=== PATIENT | male | born 1975 | race Two or more races ===

== ENCOUNTER 2025-03-18 23:20 | Emergency (ER) | payer OTHER ==
[~2025-03-18] VITALS: Ht 188 cm; Wt 134.5 kg
--- NOTE | 2025-03-18 23:46 | ED.PDOC ---
General HPI Comments 49 year old male presents to the ED for the c/c of Right Flank pain w/ associated radiating to the Right Abdomen, and N/. Pt states that his pain started approx 5x days ago, and has since found no alleviating factors at this time. Pt notes that he went to a [facility], and was told he had "back spasms", and was prescribed muscle relaxers, but notes of no alleviation from the prescribed medication. Pt Denies and V/D, Dysuria, Hematuria, or any other associated Symptoms or Modifiers at this time. Chief Complaint: Abdominal Pain Time Seen by MD: 23:41 Reviewed notes: Nurses Notes, Medications, Allergies Allergies: Coded Allergies: Aspirin (Verified Allergy, Unknown, 03/18/25) Home Meds Active Scripts Ibuprofen Micronized (Ibuprofen) 600 Mg Tab, 600 MG PO Q8HP PRN, #20 TAB Prov:ИРИНА SILVA MD 03/19/25 Hydrocodone-Acetaminophen (Hydrocodone Bitartrate/AC 10-325 mg) 1 Tab Tab, 1 TAB PO Q6HP PRN, #20 TAB Prov:ИРИНА SILVA MD 03/19/25 Tamsulosin Hcl (Flomax) 0.4 Mg Cap, 1 CAP PO DAILY for 30 Days, #30 CAP 11 Refills Prov:ИРИНА SILVA MD 03/19/25 Information Source: Patient Mode of Arrival: Ambulatory Severity: Moderate Inability to void: None Timing: Days Duration: Intermittent, Days Has not urinated for: Minutes Prehospital treatment: None Onset: Spontaneous Symptoms: Dysuria History of: None Location: Abdomen, (R) Flank Penile discharge: None Modifying factors: None associated signs and symptoms: Abdominal Pain, Nausea Past Medical History PAST MEDICAL HISTORY: Denies Surgical History: Denies all surgeries Family History Family History: Unknown Social History Smoker: Non-Smoker Alcohol: Denies ETOH Use Drugs: Denies Drug Use Lives In: Home Constitutional: denies: chills, diaphoresis, fatigue, fever, malaise, sweats, weakness, others EENTM: denies: blurred vision, double vision, ear bleeding, ear discharge, ear drainage, ear pain, ear ringing, eye pain, eye redness, hearing loss, mouth pain, mouth swelling, nasal discharge, nose bleeding, nose congestion, nose pain, photophobia, tearing, throat pain, throat swelling, voice changes, others Respiratory: denies: cough, hemoptysis, orthopnea, SOB at rest, shortness of breath, SOB with excertion, stridor, wheezing, others Cardiovascular: denies: chest pain, dizzy spells, diaphoresis, Dyspnea on exertion, edema, irregular heart beat, left arm pain, lightheadedness, palpitations, PND, syncope, others Gastrointestinal: reports: abdominal pain; denies: abdomen distended, blood str eaked bowels, constipated, diarrhea, dysphagia, difficulty swallowing, hematemesis, melena, nausea, poor appetite, poor fluid intake, rectal bleeding, rectal pain, vomiting, others Genitourinary: reports: flank pain; denies: burning, dysuria, frequency, hematuria, incontinence, penile discharge, penile sore, pain, testicle pain, testicle swelling, urgency, others Neurological: denies: dizziness, fainting, headache, left sided numbness, left sided weakness, numbness, paresthesia, pre-existing deficit, right sided numbness, right sided weakness, seizure, speech problems, tingling, tremors, weakness, others Musculoskeletal: denies: back pain, gout, joint pain, joint swelling, muscle pain, muscle stiffness, neck pain, others Integumetry: denies: bruises, change in color, change in hair/nails, dryness, laceration, lesions, lumps, rash, wounds, others Allergic/Immunocompromised: denies: Difficulty Healing, Frequent Infections, Hives, Itching, others Hematologic/Lymphatic: denies: anemia, blood clots, easy bleeding, easy bruising, swollen glands, others Endocrine: denies: excessive hunger, excessive sweating, excessive thirst, excessive urination, flushing, intolerance to cold, intolerance to heat, unexplained weight gain, unexplained weight loss, others Psychiatric: denies: anxiety, bipolar disorder, depression, hopeless, panic disorder, schizophrenia, sleepless, suicidal, others All Other Systems: Reviewed and Negative Physical Exam General Appearance: Moderate Distress, Normal, Obese HEENT: Normal ENT Inspection, Pharynx Normal, TMs Normal Neck: Full Range of Motion, Non-Tender, Normal, Normal Inspection Respiratory: Chest Non-Tender, Lungs Clear, No Accessory Muscle Use, No Respiratory Distress, Normal Breath Sounds Cardiovascular: No Edema, No JVD, No Murmur, No Gallop, Normal Peripheral Pulses, Regular Rate/Rhythm Breast Exam: Deferred Gastrointestinal: No Pulsatile Mass, Normal Bowel Sounds, RLQ, RUQ, Soft, Tenderness Genitalia: Deferred Pelvic: Deferred Rectal: Deferred Extremities: No calf tenderness, Normal capillary refill, Normal inspection, Normal range of motion, Non-tender, No pedal edema Musculoskeletal : Apperance: Normal Neurologic: Alert, 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 Was a procedure done?: No Differential Diagnosis Kidney stone (Female): Other Kidney stone (Male): Appendicitis train, Bowel obstruction, Cholelithiasis, Hepatitis, Cholangitis, Pancreatitis, Pyelonephritis, Strain, Urinary obstruction, Urolithiasis, Renal infarction, Urinary tract infection Urinary Problem (Male): N/A X-Ray, Labs, Meds, VS Vital Signs Date Time Temp Pulse Resp B/P (MAP) Pulse Ox O2 Delivery O2 Flow Rate FiO2 03/19/25 03:07 75 21 98 Room Air 03/19/25 03:07 97.8 75 21 137/89 (105) 98 97.8 03/18/25 23:22 98.1 81 16 153/108 94 98.1 Lab Test 03/18/25 23:48 03/18/25 23:28 Range/Units White Blood Count 9.2 4.4-10.8 10^3/uL Red Blood Count 4.80 4.5-5.90 10^6/uL Hemoglobin 13.7 13.5-17.5 g/dL Hematocrit 40.0 L 41.0-53.0 % Mean Corpuscular Volume 83.3 80.0-100.0 fL Mean Corpuscular Hemoglobin 28.6 28.0-32.0 pg Mean Corpuscular Hemoglobin Concent 34.3 32.0-36.0 g/dL Red Cell Distribution Width 13.3 11.8-14.3 % Platelet Count 207 140-450 10^3/uL Mean Platelet Volume 8.8 6.9-10.8 fL Neutrophils (%) (Auto) 77.5 37.0-80.0 % Lymphocytes (%) (Auto) 15.4 10.0-50.0 % Monocytes (%) (Auto) 5.9 0.0-12.0 % Eosinophils (%) (Auto) 0.8 0.0-7.0 % Basophils (%) (Auto) 0.4 0.0-2.0 % Neutrophils # (Auto) 7.1 1.6-8.6 10 ^3/uL Lymphocytes # (Auto) 1.4 0.4-5.4 10 ^3/uL Monocytes # (Auto) 0.5 0-1.3 10 ^3/uL Eosinophils # (Auto) 0.1 0-0.8 10 ^3/uL Basophils # (Auto) 0 0-0.2 10 ^3/uL Nucleated Red Blood Cells 0.1 % Sodium Level 140 136-145 mmol/L Potassium Level 3.7 3.5-5.1 mmol/L Chloride Level 104 98-107 mmol/L Carbon Dioxide Level 28 20-31 mmol/L Anion Gap 8 5-15 Blood Urea Nitrogen 21 9-23 mg/dL Creatinine 1.52 H 0.700-1.30 mg/dL Glomerular Filtration Rate Calc 57 >90 mL/min BUN/Creatinine Ratio 13.8 10.0-20.0 Serum Glucose 108 H 74-106 mg/dL Calcium Level 9.7 8.7-10.4 mg/dL Total Bilirubin 0.7 0.2-1.0 mg/dL Aspartate Amino Transferase (AST) 28 13-40 U/L Alanine Aminotransferase (ALT) 32 7-40 U/L Alkaline Phosphatase 98 46-116 U/L Total Protein 7.1 5.7-8.2 g/dL Albumin 4.6 3.2-4.8 g/dL Lipase 44 12-53 U/L Urine Color Light-yellow Yellow Urine Clarity Clear Clear Urine pH 6.0 5.0-9.0 Urine Specific [place] 1.014 1.001-1.035 Urine Protein Negative Negative Urine Ketones Negative Negative Urine Blood Trace H Negative /uL Urine Nitrite Negative Negative Urine Bilirubin Negative Negative Urine Urobilinogen Normal Negative mg/dL Urine Leukocyte Esterase Negative Negative /uL Urine RBC 1 0 - 3 /hpf Urine Microscopic WBC 1 0-3 /HPF Urine Squamous Epithelial Cells Few <5 /hpf Urine Bacteria None seen None Seen /hpf Urine Glucose Normal Normal mg/dL Current Medications Medications (Trade) Dose Ordered Sig/Janet Route Start Time Stop Time Status Last Admin Ketorolac Tromethamine (Toradol Injection) 30 mg ONCE ONCE IM 03/18/25 23:45 03/18/25 23:46 DC 03/19/25 02:59 Acetaminophen/ Hydrocodone Bitart ([place] 10/325MG Tab) 1 tab ONCE ONCE PO 03/18/25 23:45 03/18/25 23:46 DC 03/19/25 02:59 Tamsulosin HCl (Flomax) 0.4 mg ONCE ONCE PO 03/19/25 02:30 03/19/25 02:31 DC 03/19/25 02:59 Time of 1ST Reevaluation: 00:12 Reevaluation 1ST: Unchanged Patient Education/Counseling: Diagnosis, Treatment, Need For Follow Up Family Education/Counseling: No Family Present SEPSIS Sepsis Screen Date sepsis recognized/suspect: Mar 18, 2025 Time Sepsis recognized/suspect: 2326 Recent Procedure: No On Antibiotic Therapy: No Respiratory Rate >20: No Heart Rate >90: No Temp<36 C (96.8 F) or >38.3 C: No SBP <90 or MAP <65 mmHG: No New Acute Mental Status Change: No Is the patient on CPAP, BIPAP,: No Physician Orders Ct Ab Pel Wo Con-No Oral Or Iv (03/18/25 23:41) Vital Signs Date Time Temp Pulse Resp B/P (MAP) Pulse Ox O2 Delivery O2 Flow Rate FiO2 03/19/25 03:07 75 21 98 Room Air 03/19/25 03:07 97.8 75 21 137/89 (105) 98 97.8 03/18/25 23:22 98.1 81 16 153/108 94 98.1 Laboratory Tests Test 03/18/25 23:48 White Blood Count 9.2 10^3/uL (4.4-10.8) Medications Medications Dose Ordered Sig/Janet Route Start Time Stop Time Status Last Admin Dose Admin Acetaminophen/ Hydrocodone Bitart 1 tab ONCE ONCE PO 03/18/25 23:45 03/18/25 23:46 DC 03/19/25 02:59 Ketorolac Tromethamine 30 mg ONCE ONCE IM 03/18/25 23:45 03/18/25 23:46 DC 03/19/25 02:59 Tamsulosin HCl 0.4 mg ONCE ONCE PO 03/19/25 02:30 8/1/25 02:31 DC 03/19/25 02:59 Departure 1 Departure Time of Disposition: 02:00 Impression: Primary Impression: Ureteral calculus, right Additional Impression: Ureteral colic Disposition: 01 HOME / SELF CARE / HOMELESS Condition: Stable e-Prescriptions Ibuprofen Micronized (Ibuprofen) 600 Mg Tab 600 MG PO Q8HP PRN, #20 TAB Prov: ИРИНА SILVA MD 03/19/25 Hydrocodone-Acetaminophen (Hydrocodone Bitartrate/AC 10-325 mg) 1 Tab Tab 1 TAB PO Q6HP PRN, #20 TAB Prov: ИРИНА SILVA MD 03/19/25 Tamsulosin Hcl (Flomax) 0.4 Mg Cap 1 CAP PO DAILY for 30 Days, #30 CAP 11 Refills Prov: ИРИНА SILVA MD 03/19/25 Discharged With: Self Critical Care Note Critical Care Time?: No Stability Stability form required: No Heart Score Heart Score: Heart Score Response (Comments) Value History N/A 0 EKG N/A 0 Age N/A 0 Risk Factors N/A 0 Troponin N/A 0 Total 0 I personally scribed for ИРИНА SILVA MD ([email or web address]) on 03/18/25 at 23:46. Electronically submitted by Juan Browne ([email or web address]). ИРИНА SILVA MD Mar 18, 2025 23:46
[2025-03-18 23:55] LABS: Hematocrit 40.0 % (41.0-53.0); Hemoglobin 13.7 g/dL (13.5-17.5); Mean Corpuscular Hemoglobin 28.6 pg (28.0-32.0); Mean Corpuscular Volume 83.3 fL (80.0-100.0); Nucleated Red Blood Cells % 0.1 %
[2025-03-19 00:13] LABS: Alanine Aminotransferase 32 U/L (7-40); Albumin 4.6 g/dL (3.2-4.8); Alkaline Phosphatase 98 U/L (46-116); Anion Gap 8 (5-15); BUN/Creatinine Ratio 13.8 (10.0-20.0); Bilirubin, Total 0.7 mg/dL (0.2-1.0); Blood Urea Nitrogen 21 mg/dL (9-23); Calcium 9.7 mg/dL (8.7-10.4); Carbon Dioxide 28 mmol/L (20-31); Chloride 104 mmol/L (98-107); Lipase 44 U/L (12-53); Potassium 3.7 mmol/L (3.5-5.1); Sodium 140 mmol/L (136-145); Total Protein 7.1 g/dL (5.7-8.2)
[2025-03-19 00:17] LABS: Glucose 108 mg/dL (74-106)
[2025-03-19 00:48] LABS: Urine Protein, UAD Negative (Negative)
--- NOTE | 2025-03-19 01:57 | DVH ---
Exam: CT CT AB PEL WO CON-NO ORAL OR IV History: right flank pain Comparison Study: None TECHNIQUE: Multidetector CT of the abdomen and pelvis was performed from lung bases to pubic symphysi s. Imaging was performed without IV contrast. Axial, coronal, and sagittal multiplanar reformats were obtained from the axial data set by the technologist. RADIATION DOSE: CTDI vol 27.89 mGy. DLP 1638.52 mGy.cm Findings: Limited evaluation of the solid organs in the absence of IV contrast. Liver: Unremarkable. Spleen: Unremarkable. Pancreas: Unremarkable. Gallbladder: Contracted in appearance. Adrenals: Unremarkable Kidneys: 4 mm calculus situated in the distal right ureter with mild upstream hydroureteronephrosis. Mild right perinephric stranding. Bilateral parapelvic cysts are seen. The left kidney is unremarkab le. Pelvic Viscera: Unremarkable. Vasculature: Unremarkable. Retroperitoneum: Unremarkable. Bowel: No bowel obstruction. Musculoskeletal: Sclerotic and erosive changes across the opposing endplates of L4-5. Soft tissues: Tiny fat containing umbilical hernia. Lungs: The lung bases are clear. Impression: 1. 4 mm calculus situated in the distal right ureter with mild upstream hydroureteronephrosis. Mild r ight perinephric stranding. 2. Sclerotic and erosive changes across the opposing endplates of L4-5, likely degenerative, though c linical correlation is suggested to exclude discitis/osteomyelitis. 3. A additional incidental findings as detailed.
[2025-03-19] MEDS ORDERED: IBUP1TAB5 PO (02:33)
[2025-03-19] MEDS ORDERED: TAMS-35 PO (02:33)
[2025-03-19] MEDS ORDERED: HYDR-4798 PO (02:33)
[2025-03-19] MEDS: KETOROLAC TROMETH 30 MG/ML 1ML VIAL IM ONE (02:59)
[2025-03-19] MEDS: TAMSULOSIN HYDROCHLORIDE 0.4 MG CAP PO ONE (02:59)
[2025-03-19] MEDS: HYDROcodone-ACET 10/325MG TAB PO ONE (02:59)
[2025-03-19 03:07] VITALS: BP 137/89; PULSE 75; RESP 21; TEMP 97.8; O2SAT 98
== END 2025-03-19 03:10 | disposition home or self-care (01) ==
LOC: ER 23:20
DX: N13.2 Hydronephrosis with renal and ureteral calculous obstruction (principal); Z79.899 Other long term (current) drug therapy; Z88.6 Allergy status to analgesic agent
CPT/HCPCS: 36415; 74176; 80053; 81001; 83690; 85025; 96372; 99285; J1885

== ENCOUNTER 2025-03-30 23:52 | Inpatient (IN) | payer OTHER ==
[~2025-03-30] VITALS: Ht 188 cm; Wt 127.5 kg
[~2025-03-30 23:52] MED LIST: HYDR-4798 PO; IBUP1TAB5 PO; TAMS-35 PO
--- NOTE | 2025-03-31 01:25 | DVH ---
Exam: CT CT AB PEL WO CON-NO ORAL OR IV History: Flank Pain Comparison Study: CT CT AB PEL WO CON-NO ORAL OR IV on DOS: 03/19/25 TECHNIQUE: Multidetector CT of the abdomen was performed from lung bases to pubic symphysis. Imaging was performed without IV contrast. Axial, coronal and sagittal multiplanar reformats were obtained fr om the axial data set by the technologist. Radiation Dose Information: CT Dose: CTDI volume is 27.13 mGy. Dose-length product is 3.92 mGy*cm FINDINGS: Evaluation of solid organs is limited due to lack of intravenous contrast use. Findings: Lung Bases: No acute or significant lung base finding. Normal heart size. No pleural or pericardial effusion. Liver: The liver is normal in size. No focal lesions. Gallbladder and Biliary Tree: Unremarkable Spleen: Unremarkable Pancreas: The pancreas is grossly normal in appearance. Adrenal Glands: Unremarkable Kidneys: 8 mm obstructive stone at the right UVJ with associated mild to moderate hydroureteronephros is. left collecting system is unremarkable. Bladder: Grossly unremarkable for degree of distention. Bowel: The stomach is grossly normal in appearance. Small bowel and colon are normal in caliber and d istribution. The appendix is not visualized; however, no secondary findings of acute appendicitis id entified. Ascites: Absent Lymphadenopathy: No mesenteric, retroperitoneal or periportal lymphadenopathy. Abdominal Wall and Mesentery: Unremarkable. Vasculature: The visualized abdominal aorta is normal in size and caliber. Evaluation of abdominal a nd pelvic vessels is limited due to lack of intravenous contrast. Pelvic Organs: Unremarkable Musculoskeletal: No aggressive focal bony lesions, acute fractures or dislocation. Multilevel degener ative changes lumbar spine most pronounced at L4-L5. Soft tissues: Unremarkable IMPRESSION: 8 mm obstructive stone at the right UVJ with associated mild to moderate hydroureteronephrosis.
[2025-03-31 01:29] LABS: Hematocrit 39.1 % (41.0-53.0); Hemoglobin 13.1 g/dL (13.5-17.5); Mean Corpuscular Hemoglobin 27.8 pg (28.0-32.0); Mean Corpuscular Volume 83.1 fL (80.0-100.0); Nucleated Red Blood Cells % 0.0 %
--- NOTE | 2025-03-31 01:36 | ED.PDOC ---
General HPI Comments 49 year old male with a Hx of Kidney Stones presents to the ED for the c/c of Right Sided Flank pain w/ associated Right sided Abdomen pain. Pt states the he was here at [facility] 2x weeks ago and was DX with Kidney stones. Pt notes that his pain subsided, but has since returned earlier this afternoon, with no alleviating factors at this time. Pt notes that was was prescribed Flomax, [place], and Ibuprofen, but denies any alleviation. Pt denies any Dysuria, frequency, hematuria, N/V/D, or any other associated Symptoms or modifiers at this time. EXAM: General: Awake, alert and oriented. No acute distress. Skin: Skin in warm, dry and intact. Appropriate color for ethnicity. HEENT: The head is normocephalic and atraumatic. Conjunctivae are clear without exudates or hemorrhage. Sclera is non-icteric. EOM are intact. No signs of nys tagmus. Eyelids are normal in appearance without swelling or lesions. Oral mucosa is pink and moist Neck: The neck is supple with normal range of motion. No JVD. Cardiac: Heart rate and rhythm are normal. No murmurs, gallops, or rubs are auscultated. Respiratory: No signs of respiratory distress. Lung sounds are clear in all lobes bilaterally without rales, rhonchi, or wheezes. Abdominal: Abdomen is soft, non-tender without distention. Bowel sounds are present and normoactive in all four quadrants. Right Flank tenderness upon palpitation Extremities: Upper and lower extremities are atraumatic in appearance without deformity or edema. Neurological: The patient is awake, alert and oriented to person, place, and time with normal speech. Speech is clear. There is no facial asymmetry. Psychiatric: Appropriate mood and affect. Good judgement and insight. REVIEW OF SYSTEMS: No fever, no chills, or fatigue HEENT: No sore throat, no earache, no congestion, no neck pain. Cardiac: No chest pain. No palpitations. Lungs: No shortness of breath, no cough. GI: No nausea, no vomiting, no diarrhea, no constipation, no abdominal pain : No dysuria, frequency, or urgency. No hematuria. + Right Flank tenderness Musculoskeletal: No joint pain , no joint swelling, no extremity edema. Skin: No rash, no itching. Neuro: No headache, no dizziness, no weakness Chief Complaint: Flank Pain Time Seen by MD: : Reviewed notes: Nurses Notes, Medications, Allergies Allergies: Coded Allergies: Aspirin (Verified Allergy, Unknown, 03/18/25) Home Meds Active Scripts Ibuprofen Micronized (Ibuprofen) 600 Mg Tab, 600 MG PO Q8HP PRN, #20 TAB Prov:ИРИНА SILVA MD 03/19/25 Hydrocodone-Acetaminophen (Hydrocodone Bitartrate/AC 10-325 mg) 1 Tab Tab, 1 TAB PO Q6HP PRN, #20 TAB Prov:ИРИНА SILVA MD 03/19/25 Tamsulosin Hcl (Flomax) 0.4 Mg Cap, 1 CAP PO DAILY for 30 Days, #30 CAP 11 Refills Prov:ИРИНА SILVA MD 03/19/25 Information Source: Patient Mode of Arrival: Ambulatory Severity: Moderate Inability to void: None Timing: Hours Duration: Since onset, Hours Has not urinated for: Hours Prehospital treatment: None Onset: Spontaneous Symptoms: None History of: Kidney stone Location: Abdomen, (R) Flank Penile discharge: None Modifying factors: None associated signs and symptoms: Abdominal Pain, Flank Pain Past Medical History PAST MEDICAL HISTORY: Kidney Stones Surgical History: Denies all surgeries Family History Family History: Unknown Social History Smoker: Non-Smoker Alcohol: Denies ETOH Use Drugs: Denies Drug Use Lives In: Home Was a procedure done? Was a procedure done?: No Differential Diagnosis Kidney stone (Female): N/A Kidney stone (Male): Bowel obstruction, Cholelithiasis, Pancreatitis, Pyelonephritis, Urinary obstruction, Urolithiasis, Renal infarction, Urinary tract infection Penile/Scrotal: N/A Urinary Problem (Male): N/A Urinary Problem (Female): N/A X-Ray, Labs, Meds, VS Vital Signs Date Time Temp Pulse Resp B/P (MAP) Pulse Ox O2 Delivery O2 Flow Rate FiO2 03/30/25 23:53 97.4 74 20 140/91 98 97.4 Lab Test 03/31/25 03:00 03/31/25 01:04 Range/Units Urine Color Light-yellow Yellow Urine Clarity Clear Clear Urine pH 5.0 5.0-9.0 Urine Specific [place] 1.015 1.001-1.035 Urine Protein Negative Negative Urine Ketones Negative Negative Urine Blood Negative Negative /uL Urine Nitrite Negative Negative Urine Bilirubin Negative Negative Urine Urobilinogen Normal Negative mg/dL Urine Leukocyte Esterase Negative Negative /uL Urine RBC None seen 0 - 3 /hpf Urine Microscopic WBC 1 0-3 /HPF Urine Squamous Epithelial Cells None seen <5 /hpf Urine Uric Acid Crystals Mod None Seen /hpf Urine Bacteria None seen None Seen /hpf Urine Mucus Few None Seen Urine Glucose Normal Normal mg/dL White Blood Count 10.4 4.4-10.8 10^3/uL Red Blood Count 4.71 4.5-5.90 10^6/uL Hemoglobin 13.1 L 13.5-17.5 g/dL Hematocrit 39.1 L 41.0-53.0 % Mean Corpuscular Volume 83.1 80.0-100.0 fL Mean Corpuscular Hemoglobin 27.8 L 28.0-32.0 pg Mean Corpuscular Hemoglobin Concent 33.5 32.0-36.0 g/dL Red Cell Distribution Width 13.0 11.8-14.3 % Platelet Count 218 140-450 10^3/uL Mean Platelet Volume 9.1 6.9-10.8 fL Neutrophils (%) (Auto) 89.0 H 37.0-80.0 % Lymphocytes (%) (Auto) 6.5 L 10.0-50.0 % Monocytes (%) (Auto) 4.2 0.0-12.0 % Eosinophils (%) (Auto) 0.2 0.0-7.0 % Basophils (%) (Auto) 0.1 0.0-2.0 % Neutrophils # (Auto) 9.3 H 1.6-8.6 10 ^3/uL Lymphocytes # (Auto) 0.7 0.4-5.4 10 ^3/uL Monocytes # (Auto) 0.4 0-1.3 10 ^3/uL Eosinophils # (Auto) 0 0-0.8 10 ^3/uL Basophils # (Auto) 0 0-0.2 10 ^3/uL Nucleated Red Blood Cells 0.0 % Sodium Level 140 136-145 mmol/L Potassium Level 4.2 3.5-5.1 mmol/L Chloride Level 105 98-107 mmol/L Carbon Dioxide Level 25 20-31 mmol/L Anion Gap 10 5-15 Blood Urea Nitrogen 19 9-23 mg/dL Creatinine 1.76 H 0.700-1.30 mg/dL Glomerular Filtration Rate Calc 47 >90 mL/min BUN/Creatinine Ratio 10.8 10.0-20.0 Serum Glucose 131 H 74-106 mg/dL Calcium Level 9.2 8.7-10.4 mg/dL TIENT: MITESH PATELACCT: [id number]: [id number] : 1975 LOC: ER ROOM / BED: / AGE / SEX: 49 / M ADM STATUS: REG ER SERVICE [id number] ORDERING PHYSICIAN: TIM OCHOA MD PROCEDURE(s): ABPL - CT AB PEL WO CON-NO ORAL OR IV REASON: Flank Pain ORDER NUMBER(s): [id number], ACCESSION NUMBER(s): [id number] Exam: CT CT AB PEL WO CON-NO ORAL OR IV History: Flank Pain Comparison Study: CT CT AB PEL WO CON-NO ORAL OR IV on DOS: 03/19/25 TECHNIQUE: Multidetector CT of the abdomen was performed from lung bases to pubic symphysis. Imaging was performed without IV contrast. Axial, coronal and sagittal multiplanar reformats were obtained from the axial data set by the technologist. Radiation Dose Information: CT Dose: CTDI volume is 27.13 mGy. Dose-length product is 3.92 mGy*cm FINDINGS: Evaluation of solid organs is limited due to lack of intravenous contrast use. Findings: Lung Bases: No acute or significant lung base finding. Normal heart size. No pleural or pericardial effusion. Liver: The liver is normal in size. No focal lesions. Gallbladder and Biliary Tree: Unremarkable Spleen: Unremarkable Pancreas: The pancreas is grossly normal in appearance. Adrenal Glands: Unremarkable Kidneys: 8 mm obstructive stone at the right UVJ with associated mild to moderate hydroureteronephrosis. left collecting system is unremarkable. Bladder: Grossly unremarkable for degree of distention. Bowel: The stomach is grossly normal in appearance. Small bowel and colon are normal in caliber and distribution. The appendix is not visualized; however, no secondary findings of acute appendicitis identified. Ascites: Absent Lymphadenopathy: No mesenteric, retroperitoneal or periportal lymphadenopathy. Abdominal Wall and Mesentery: Unremarkable. Vasculature: The visualized abdominal aorta is normal in size and caliber. Evaluation of abdominal and pelvic vessels is limited due to lack of intravenous contrast. Pelvic Organs: Unremarkable Musculoskeletal: No aggressive focal bony lesions, acute fractures or disloc ation. Multilevel degenerative changes lumbar spine most pronounced at L4-L5. Soft tissues: Unremarkable IMPRESSION: 8 mm obstructive stone at the right UVJ with associated mild to moderate hydroureteronephrosis. Time of 1ST Reevaluation: 02:00 Reevaluation 1ST: Unchanged Patient Education/Counseling: Other (Need for admission) Family Education/Counseling: No Family Present SEPSIS Sepsis Screen Date sepsis recognized/suspect: Mar 30, 2025 Time Sepsis recognized/suspect: 2355 Recent Procedure: No On Antibiotic Therapy: No Respiratory Rate >20: No Heart Rate >90: No Temp<36 C (96.8 F) or >38.3 C: No SBP <90 or MAP <65 mmHG: No New Acute Mental Status Change: No Is the patient on CPAP, BIPAP,: No Physician Orders Ct Ab Pel Wo Con-No Oral Or Iv (03/31/25 00:54) Vital Signs Date Time Temp Pulse Resp B/P (MAP) Pulse Ox O2 Delivery O2 Flow Rate FiO2 03/30/25 23:53 97.4 74 20 140/91 98 97.4 Laboratory Tests Test 03/31/25 01:04 White Blood Count 10.4 10^3/uL (4.4-10.8) Departure 1 Departure Time of Disposition: 03:15 Impression: Primary Impression: Nephrolithiasis Disposition: ADMITTED INPATIENT Condition: Stable Comments 8 mm obstructive stone at the right UVJ with associated mild to moderate hydroureteronephrosis. Pain uncontrolled. Patient admitted to hospitalist service for further treatment, evaluation and monitoring. Critical Care Note Critical Care Time?: No Stability Stability form required: No Heart Score Heart Score: Heart Score Response (Comments) Value History N/A 0 EKG N/A 0 Age N/A 0 Risk Factors N/A 0 Troponin N/A 0 Total 0 I personally scribed for TIM OCHOA MD ([email or web address]) on 03/31/25 at 01:36. Electronically submitted by Juan Browne [email or web address]). TIM OCHOA MD Mar 31, 2025 01:36
[2025-03-31 01:47] LABS: Chloride 105 mmol/L (98-107); Potassium 4.2 mmol/L (3.5-5.1); Sodium 140 mmol/L (136-145)
[2025-03-31 01:48] LABS: Anion Gap 10 (5-15); Carbon Dioxide 25 mmol/L (20-31)
[2025-03-31 01:49] LABS: Calcium 9.2 mg/dL (8.7-10.4)
[2025-03-31 01:54] LABS: BUN/Creatinine Ratio 10.8 (10.0-20.0); Blood Urea Nitrogen 19 mg/dL (9-23)
[2025-03-31 01:59] LABS: Glucose 131 mg/dL (74-106)
[2025-03-31 04:03] LABS: Urine Protein, UAD Negative (Negative)
--- NOTE | 2025-03-31 04:24 | DVHHP2 ---
History of Present Illness Reason for Visit: Flank pain History of Present Illness 49-year-old male presents for evaluation of right flank pain. Patient reports being diagnosed with kidney stones two weeks ago. He states last week he had no pain. Today, he developed right groin pain that radiates to his right flank. Also associates symptoms of nausea. No fever or chills. No other acute complaints reported. Past Medical History Kidney stones Past Surgical History Denies Family History Noncontributory Smoke: No ALCOHOL: none Drugs: None Lives: with Family Review of Systems Review of Systems Review of systems are currently negative otherwise addressed in HPI. Allergies: Coded Allergies: Aspirin (Verified Allergy, Unknown, 03/18/25) Exam Vital Signs Vital Signs Date Time Temp Pulse Resp B/P (MAP) Pulse Ox O2 Delivery O2 Flow Rate FiO2 03/30/25 23:53 97.4 74 20 140/91 98 97.4 Exam Gen: 49-year-old male in mild distress Skin: Warm, dry, normal color and texture, no rash. HEENT: Normocephalic atraumatic, mucous membranes moist and pink. Neck: Cervical and supraclavicular nodes normal without enlargement, trachea is midline, thyroid gland is normal without masses. Pulmonary: Clear to auscultation and percussion bilaterally. Cardiac: Regular rate and rhythm. No murmur Abdomen: Soft, right flank pain, nondistended, bowel sounds present all 4 quadrants, no guarding, no rigidity, no organomegaly. Extremities: No cyanosis, clubbing, no edema Neuro: Cranial nerves II through XII grossly intact, normal affect and speech, no focal motor deficits. Labs/Xrays ORDERING PHYSICIAN: TIM OCHOA MD PROCEDURE(s): ABPL - CT AB PEL WO CON-NO ORAL OR IV REASON: Flank Pain ORDER NUMBER(s): [id number], ACCESSION NUMBER(s): [id number] Exam: CT CT AB PEL WO CON-NO ORAL OR IV History: Flank Pain Comparison Study: CT CT AB PEL WO CON-NO ORAL OR IV on DOS: 03/19/25 TECHNIQUE: Multidetector CT of the abdomen was performed from lung bases to pubic symphysis. Imaging was performed without IV contrast. Axial, coronal and sagittal multiplanar reformats were obtained from the axial data set by the technologist. Radiation Dose Information: CT Dose: CTDI volume is 27.13 mGy. Dose-length product is 3.92 mGy*cm FINDINGS: Evaluation of solid organs is limited due to lack of intravenous contrast use. Findings: Lung Bases: No acute or significant lung base finding. Normal heart size. No pleural or pericardial effusion. Liver: The liver is normal in size. No focal lesions. Gallbladder and Biliary Tree: Unremarkable Spleen: Unremarkable Pancreas: The pancreas is grossly normal in appearance. Adrenal Glands: Unremarkable Kidneys: 8 mm obstructive stone at the right UVJ with associated mild to moderate hydroureteronephrosis. left collecting system is unremarkable. Bladder: Grossly unremarkable for degree of distention. Bowel: The stomach is grossly normal in appearance. Small bowel and colon are normal in caliber and distribution. The appendix is not visualized; however, no secondary findings of acute appendicitis identified. Ascites: Absent Lymphadenopathy: No mesenteric, retroperitoneal or periportal lymphadenopathy. Abdominal Wall and Mesentery: Unremarkable. Vasculature: The visualized abdominal aorta is normal in size and caliber. Evaluation of abdominal and pelvic vessels is limited due to lack of intravenous contrast. Pelvic Organs: Unremarkable Musculoskeletal: No aggressive focal bony lesions, acute fractures or dislocation. Multilevel degenerative changes lumbar spine most pronounced at L4- L5. Soft tissues: Unremarkable IMPRESSION: 8 mm obstructive stone at the right UVJ with associated mild to moderate hydroureteronephrosis. Labs Test 03/31/25 03:00 03/31/25 01:04 Range/Units Urine Color Light-yellow Yellow Urine Clarity Clear Clear Urine pH 5.0 5.0-9.0 Urine Specific Anderson 1.015 1.001-1.035 Urine Protein Negative Negative Urine Ketones Negative Negative Urine Blood Negative Negative /uL Urine Nitrite Negative Negative Urine Bilirubin Negative Negative Urine Urobilinogen Normal Negative mg/dL Urine Leukocyte Esterase Negative Negative /uL Urine RBC None seen 0 - 3 /hpf Urine Microscopic WBC 1 0-3 /HPF Urine Squamous Epithelial Cells None seen <5 /hpf Urine Uric Acid Crystals Mod None Seen /hpf Urine Bacteria None seen None Seen /hpf Urine Mucus Few None Seen Urine Glucose Normal Normal mg/dL White Blood Count 10.4 4.4-10.8 10^3/uL Red Blood Count 4.71 4.5-5.90 10^6/uL Hemoglobin 13.1 L 13.5-17.5 g/dL Hematocrit 39.1 L 41.0-53.0 % Mean Corpuscular Volume 83.1 80.0-100.0 fL Mean Corpuscular Hemoglobin 27.8 L 28.0-32.0 pg Mean Corpuscular Hemoglobin Concent 33.5 32.0-36.0 g/dL Red Cell Distribution Width 13.0 11.8-14.3 % Platelet Count 218 140-450 10^3/uL Mean Platelet Volume 9.1 6.9-10.8 fL Neutrophils (%) (Auto) 89.0 H 37.0-80.0 % Lymphocytes (%) (Auto) 6.5 L 10.0-50.0 % Monocytes (%) (Auto) 4.2 0.0-12.0 % Eosinophils (%) (Auto) 0.2 0.0-7.0 % Basophils (%) (Auto) 0.1 0.0-2.0 % Neutrophils # (Auto) 9.3 H 1.6-8.6 10 ^3/uL Lymphocytes # (Auto) 0.7 0.4-5.4 10 ^3/uL Monocytes # (Auto) 0.4 0-1.3 10 ^3/uL Eosinophils # (Auto) 0 0-0.8 10 ^3/uL Basophils # (Auto) 0 0-0.2 10 ^3/uL Nucleated Red Blood Cells 0.0 % Sodium Level 140 136-145 mmol/L Potassium Level 4.2 3.5-5.1 mmol/L Chloride Level 105 98-107 mmol/L Carbon Dioxide Level 25 20-31 mmol/L Anion Gap 10 5-15 Blood Urea Nitrogen 19 9-23 mg/dL Creatinine 1.76 H 0.700-1.30 mg/dL Glomerular Filtration Rate Calc 47 >90 mL/min BUN/Creatinine Ratio 10.8 10.0-20.0 Serum Glucose 131 H 74-106 mg/dL Calcium Level 9.2 8.7-10.4 mg/dL SEPSIS Sepsis Screen Date sepsis recognized/suspect: Mar 30, 2025 Time Sepsis recognized/suspect: 2355 Recent Procedure: No On Antibiotic Therapy: No Respiratory Rate >20: No Heart Rate >90: No Temp<36 C (96.8 F) or >38.3 C: No SBP <90 or MAP <65 mmHG: No New Acute Mental Status Change: No Is the patient on CPAP, BIPAP,: No Physician Orders Ct Ab Pel Wo Con-No Oral Or Iv (03/31/25 00:54) * Urology Consult (03/31/25 04:19) Regular Diet (03/31/25 Breakfast) Basic Metabolic Panel (04/01/25 04:00) Admit (03/31/25 04:19) Hydrocodone-Acet 5/325mg Tab (Jefferson 5/32 (03/31/25 04:30) Ondansetron Hcl (Zofran) (03/31/25 04:30) Condition: Stable (03/31/25 04:19) Acetaminophen Tablet (Tylenol Tablet) (03/31/25 04:30) Bedrest With Bathroom Privileg (03/31/25 04:19) Morphine Sulfate Injection (03/31/25 04:30) Vital Signs Date Time Temp Pulse Resp B/P (MAP) Pulse Ox O2 Delivery O2 Flow Rate FiO2 03/30/25 23:53 97.4 74 20 140/91 98 97.4 Laboratory Tests Test 03/31/25 01:04 White Blood Count 10.4 10^3/uL (4.4-10.8) Assessment/Plan Assessment/Plan Assessment Nephrolithiasis Acute kidney injury Right hydroureter nephrosis Morbid obesity Plan Admit the patient to [facility] to the hospitalist Urology consultation Pain management Continue treatment per orders. Plan discussed with: Patient My Orders Orders - YADIRA CONTI Procedure Category Date Status Time * Urology Consult CONS 03/31/25 Verified 04:19 Regular Diet DIET 03/31/25 Verified Breakfast Basic Metabolic Panel LAB 04/01/25 Verified 04:00 Admit ADMIT 03/31/25 Verified 04:19 Hydrocodone-Acet PHA 03/31/25 Verified 5/325mg Tab (Jefferson 04:30 Ondansetron Hcl PHA 03/31/25 Verified (Zofran) 04:30 Condition: Stable FE 03/31/25 Verified 04:19 Acetaminophen Tablet PHA 03/31/25 Verified (Tylenol Tablet) 04:30 Bedrest With Bathroom FE 03/31/25 Verified Privileg 04:19 Morphine Sulfate PHA 03/31/25 Verified Injection 04:30 Date of Service: Mar 31, 2025 Billing Provider: YADIRA CONTI Common Visit Codes: [id number] INP/OBS CARE (MOD) YADIRA CONTI AGACN Mar 31, 2025 04:24
[2025-03-31] MEDS ORDERED: ACETAMINOPHEN 325 MG TAB PO PRN (04:30)
[2025-03-31] MEDS: KETOROLAC TROMETH 30 MG/ML 1ML VIAL IV ONE (05:52)
[2025-03-31] MEDS: ONDANSETRON HCL 4 MG/2 ML VIAL IV PRN (05:52)
[2025-03-31] MEDS: MORPHINE SULFATE INJ 2 MG/ml SYRG IV ONE (05:53)
[2025-03-31] MEDS: SODIUM CHLORIDE 0.9% 1,000 ML IV ONE (06:08)
[2025-03-31] MEDS: SODIUM CHLORIDE 0.9% 1,000 ML IV SCH (10:30)
[2025-03-31] MEDS: TAMSULOSIN HYDROCHLORIDE 0.4 MG CAP PO ONE (10:57)
[2025-03-31] MEDS: HYDROcodone-ACET 5/325MG TAB PO PRN (10:58)
[2025-03-31 13:34] VITALS: PULSE 79; RESP 12; O2SAT 98
[2025-03-31 14:44] VITALS: PULSE 85; RESP 18; O2SAT 96
[2025-03-31] MEDS: MORPHINE SULFATE INJ 2 MG/ml SYRG IV PRN (15:09)
[2025-03-31 15:21] VITALS: BP 139/87; PULSE 77; RESP 19; TEMP 97.9; O2SAT 96
--- NOTE | 2025-03-31 15:34 | DVHPNRES ---
Progress Note Date Seen: Mar 31, 2025 Resident Creating Document: ASHU FLORES RESIDENT Medical Necessity Reason Pt with a Central, PICC or Fol: No Subjective Review of Systems This is 49-year-old male with past medical history of kidney stones presents to the emergency department with recurrent right-sided flank pain and right lower abdominal pain. He was previously evaluated at [facility] two weeks ago and diagnosed with kidney stones. At that time, he was prescribed Flomax, Kirkwood, and Ibuprofen. Patient reports that pain had resolved temporarily but became significantly worse starting yesterday afternoon and led to ED visit. Today, the patient also reports new onset of right groin pain radiating to the right flank, accompanied by nausea. He denies dysuria, urinary frequency, hematuria, vomiting, diarrhea, fever, chills, or other associated symptoms. He notes that the previously prescribed medications have not provided relief. Past medical history: Appendicitis Past surgical history: Appendectomy Family History Noncontributory Smoke: No ALCOHOL: none Drugs: None Allergies: Coded Allergies: Aspirin (Verified Allergy, Unknown, 03/18/25) Patient seen and examined at bedside. Patient is alert and oriented to time, place person and responding to all questions. Eyes: No Pain, No Vision change, No Conjunctivae inflammation, No Eyelid inflammation, No Other, No Redness ENT: No Ear pain, No Ear discharge, No Nose pain, No Nose discharge, No Nose congestion, No Mouth pain, No Mouth swelling, No Throat pain, No Throat swelling, No Other Cardiovascular: No Chest Pain, No Palpitations, No Orthopnea, No Paroxysmal No Dyspnea, No Edema, No Lt Headedness, No Other Respiratory: No Cough, No Dry, No Shortness of breath, No SOB with exertion, No Wheezing, No Hemoptysis, No Pleuritic Pain, No Sputum, No Other Gastrointestinal: Lower Abdominal Pain, Nausea, No Vomiting, No Diarrhea, No Constipation, No Melena, No Hematochezia, No Other Genitourinary: No Dysuria, No Frequency, No Incontinence, No Hematuria, No Retention, No Other Musculoskeletal: No other, No neck pain, No shoulder pain, No arm pain, No back pain, No hand pain, No leg pain, No foot pain Skin: No Rash, No Lesions, No Jaundice, No Bruising, No Other Samantha Objective vital signs Vital Sign Date Time Temp Pulse Resp B/P (MAP) Pulse Ox O2 Delivery O2 Flow Rate FiO2 03/31/25 15:21 97.9 77 19 139/87 (104) 96 97.9 03/31/25 13:34 Room Air* 0 21 Total Intake and Output 03/30/25 03/30/25 03/31/25 14:59 22:59 06:59 Intake Total 1000 ml Balance 1000 ml medications Current Medications Medications Dose Ordered Sig/Janet Route Start Time Stop Time Status Last Admin Dose Admin Acetaminophen/ Hydrocodone Bitart 1 tab Q4HP PRN PO 03/31/25 04:30 03/31/25 10:58 1 TAB Ondansetron HCl 4 mg Q4HP PRN IV 03/31/25 04:30 03/31/25 05:52 4 MG Acetaminophen 650 mg Q6HP PRN PO 03/31/25 04:30 Morphine Sulfate 2 mg Q4HPRN PRN IV 03/31/25 04:30 03/31/25 15:09 2 MG Tamsulosin HCl 0.4 mg QPM PO 03/31/25 18:00 Sodium Chloride 1,000 ml @ 100 mls/hr Q10H IV 03/31/25 10:30 03/31/25 10:30 100 MLS/HR Examination Gen: 49-year-old male in mild distress Skin: Warm, dry, normal color and texture, no rash. HEENT: Normocephalic atraumatic, mucous membranes moist and pink. Neck: Cervical and supraclavicular nodes normal without enlargement, trachea is midline, thyroid gland is normal without masses. Pulmonary: Clear to auscultation and percussion bilaterally. Cardiac: Regular rate and rhythm. No murmur Abdomen: Soft, right flank pain, Right Costovertebral Angle Tenderness, nondistended, bowel sounds present all 4 quadrants, no guarding, no rigidity, no organomegaly. Extremities: No cyanosis, clubbing, no edema Neuro: Cranial nerves II through XII grossly intact, normal affect and speech, no focal motor deficits. laboratory and microbiology Laboratory Tests 03/31/25 01:04 Test 03/31/25 01:04 Range/Units Serum Glucose 131 H 74-106 mg/dL Labs and/or images reviewed: Labs reviewed by me, Image(s) reviewed by me Problem List/Assessment/Plan Problem List/Assessment/Plan # obstructive nephrolithiasis with hydroureteronephrosis # possible pyelonephritis # GUILLERMO due to above -Kirkwood -Zofran -Tylenol -Flomax 0.4 mg -Sodium chloride -Urology consult -CT: 8 mm obstructive stone at the right UVJ with associated mild to moderate hydroureteronephrosis. #Morbid obesity - BMI 36.1 kg/m2 - healthy diet Goals of care: Full code, discussed for >16 minutes on 03/31/25 Plan discussed with patient Plan discussed with Dr. Bertrand Plan discussed with: Patient, Other Date of Service: Mar 31, 2025 Billing Provider: TOLU BERTRAND MD Common Visit Codes: [id number] INP/OBS CARE(HIGH) Secondary Visit Codes: [id number] CARE PLAN 30 MINUTES ASHU FLORES RESIDENT Mar 31, 2025 15:34 TOLU BERTRAND MD Apr 03, 2025 21:18
[2025-03-31 17:00] VITALS: BP 145/86; PULSE 97; RESP 19; TEMP 97.4; O2SAT 99
[2025-03-31] MEDS: TAMSULOSIN HYDROCHLORIDE 0.4 MG CAP PO SCH (17:12)
[2025-03-31 20:00] VITALS: PULSE 97; RESP 18
[2025-03-31 21:00] VITALS: BP 128/85; PULSE 97; RESP 18; TEMP 98.2; O2SAT 98
--- NOTE | 2025-03-31 21:43 | DVHINCON2 ---
Date of service: Mar 31, 2025 Referring Physician Hospitalist Reason for Consultation 6-8 mm right distal UVJ stone with mild to moderatte hydronephrosis and flank pain History of Present Illness Patient admitted to [facility] for right abdominal pain. CT Scan reported 6-8 mm right UVJ stone with mild to moderate hydronephrosis. Family History: Patient reports no known family medical history. Allergies: Coded Allergies: Aspirin (Verified Allergy, Unknown, 03/18/25) Home Meds Active Scripts Ibuprofen Micronized (Ibuprofen) 600 Mg Tab, 600 MG PO Q8HP PRN, #20 TAB Prov:ИРИНА SILVA MD 03/19/25 Hydrocodone-Acetaminophen (Hydrocodone Bitartrate/AC 10-325 mg) 1 Tab Tab, 1 TAB PO Q6HP PRN, #20 TAB Prov:ИРИНА SILVA MD 03/19/25 Tamsulosin Hcl (Flomax) 0.4 Mg Cap, 1 CAP PO DAILY for 30 Days, #30 CAP 11 Refills Prov:ИРИНА SILVA MD 03/19/25 Current Medications Current Medications Medications (Trade) Dose Ordered Sig/Janet Route PRN Reason Start Time Stop Time Status Last Admin Acetaminophen/ Hydrocodone Bitart (Orange 5/325MG Tab) 1 tab Q4HP PRN PO MODERATE PAIN (4-6 PAIN SCALE) 03/31/25 04:30 03/31/25 10:58 Ondansetron HCl (Zofran) 4 mg Q4HP PRN IV NAUSEA / VOMITING 03/31/25 04:30 03/31/25 05:52 Acetaminophen (Tylenol Tablet) 650 mg Q6HP PRN PO PAIN SCALE 1-3 OR TEMP>100.4 03/31/25 04:30 Morphine Sulfate 2 mg Q4HPRN PRN IV SEVERE PAIN (7-10 PAIN SCALE) 03/31/25 04:30 03/31/25 19:58 Tamsulosin HCl (Flomax) 0.4 mg QPM PO 03/31/25 18:00 03/31/25 17:12 Sodium Chloride 1,000 ml @ 100 mls/hr Q10H IV 03/31/25 10:30 03/31/25 20:42 Vital Signs Vital Signs Date Time Temp Pulse Resp B/P (MAP) Pulse Ox O2 Delivery O2 Flow Rate FiO2 03/31/25 21:00 98.2 97 18 128/85 (99) 98 98.2 03/31/25 14:44 Room Air* 0 21 Labs/Diagnostic Data Labs Test 03/31/25 03:00 03/31/25 01:04 Range/Units Urine Color Light-yellow Yellow Urine Clarity Clear Clear Urine pH 5.0 5.0-9.0 Urine Specific Hubbard 1.015 1.001-1.035 Urine Protein Negative Negative Urine Ketones Negative Negative Urine Blood Negative Negative /uL Urine Nitrite Negative Negative Urine Bilirubin Negative Negative Urine Urobilinogen Normal Negative mg/dL Urine Leukocyte Esterase Negative Negative /uL Urine RBC None seen 0 - 3 /hpf Urine Microscopic WBC 1 0-3 /HPF Urine Squamous Epithelial Cells None seen <5 /hpf Urine Uric Acid Crystals Mod None Seen /hpf Urine Bacteria None seen None Seen /hpf Urine Mucus Few None Seen Urine Glucose Normal Normal mg/dL White Blood Count 10.4 4.4-10.8 10^3/uL Red Blood Count 4.71 4.5-5.90 10^6/uL Hemoglobin 13.1 L 13.5-17.5 g/dL Hematocrit 39.1 L 41.0-53.0 % Mean Corpuscular Volume 83.1 80.0-100.0 fL Mean Corpuscular Hemoglobin 27.8 L 28.0-32.0 pg Mean Corpuscular Hemoglobin Concent 33.5 32.0-36.0 g/dL Red Cell Distribution Width 13.0 11.8-14.3 % Platelet Count 218 140-450 10^3/uL Mean Platelet Volume 9.1 6.9-10.8 fL Neutrophils (%) (Auto) 89.0 H 37.0-80.0 % Lymphocytes (%) (Auto) 6.5 L 10.0-50.0 % Monocytes (%) (Auto) 4.2 0.0-12.0 % Eosinophils (%) (Auto) 0.2 0.0-7.0 % Basophils (%) (Auto) 0.1 0.0-2.0 % Neutrophils # (Auto) 9.3 H 1.6-8.6 10 ^3/uL Lymphocytes # (Auto) 0.7 0.4-5.4 10 ^3/uL Monocytes # (Auto) 0.4 0-1.3 10 ^3/uL Eosinophils # (Auto) 0 0-0.8 10 ^3/uL Basophils # (Auto) 0 0-0.2 10 ^3/uL Nucleated Red Blood Cells 0.0 % Sodium Level 140 136-145 mmol/L Potassium Level 4.2 3.5-5.1 mmol/L Chloride Level 105 98-107 mmol/L Carbon Dioxide Level 25 20-31 mmol/L Anion Gap 10 5-15 Blood Urea Nitrogen 19 9-23 mg/dL Creatinine 1.76 H 0.700-1.30 mg/dL Glomerular Filtration Rate Calc 47 >90 mL/min BUN/Creatinine Ratio 10.8 10.0-20.0 Serum Glucose 131 H 74-106 mg/dL Calcium Level 9.2 8.7-10.4 mg/dL PATIENT: MITESH PATEL ACCT: [id number] UNIT: [id number] : 1975 LOC: ER ROOM / BED: / AGE / SEX: 49 / M ADM STATUS: REG ER SERVICE 0054 ORDERING PHYSICIAN: TIM OCHOA MD PROCEDURE(s): ABPL - CT AB PEL WO CON-NO ORAL OR IV REASON: Flank Pain ORDER NUMBER(s): [id number], ACCESSION NUMBER(s): [id number] Exam: CT CT AB PEL WO CON-NO ORAL OR IV History: Flank Pain Comparison Study: CT CT AB PEL WO CON-NO ORAL OR IV on DOS: 03/19/25 TECHNIQUE: Multidetector CT of the abdomen was performed from lung bases to pubic symphysis. Imaging was performed without IV contrast. Axial, coronal and sagittal multiplanar reformats were obtained from the axial data set by the technologist. Radiation Dose Information: CT Dose: CTDI volume is 27.13 mGy. Dose-length product is 3.92 mGy*cm FINDINGS: Evaluation of solid organs is limited due to lack of intravenous contrast use. Findings: Lung Bases: No acute or significant lung base finding. Normal heart size. No pleural or pericardial effusion. Liver: The liver is normal in size. No focal lesions. Gallbladder and Biliary Tree: Unremarkable Spleen: Unremarkable Pancreas: The pancreas is grossly normal in appearance. Adrenal Glands: Unremarkable Kidneys: 8 mm obstructive stone at the right UVJ with associated mild to moderate hydroureteronephrosis. left collecting system is unremarkable. Bladder: Grossly unremarkable for degree of distention. Bowel: The stomach is grossly normal in appearance. Small bowel and colon are normal in caliber and distribution. The appendix is not visualized; however, no secondary findings of acute appendicitis identified. Ascites: Absent Lymphadenopathy: No mesenteric, retroperitoneal or periportal lymphadenopathy. Abdominal Wall and Mesentery: Unremarkable. Vasculature: The visualized abdominal aorta is normal in size and caliber. Evaluation of abdominal and pelvic vessels is limited due to lack of intravenous contrast. Pelvic Organs: Unremarkable Musculoskeletal: No aggressive focal bony lesions, acute fractures or dislocation. Multilevel degenerative changes lumbar spine most pronounced at L4-L5. Soft tissues: Unremarkable IMPRESSION: 8 mm obstructive stone at the right UVJ with associated mild to moderate hydrour eteronephrosis. ATED BY: DAVID RUIZ MD DICTATED DATE/TIME: 03/31/25122 SIGNED BY: DAVID RUIZ MD SIGNED DATE/TIME: 03/31/25122 CC: Assessment right distal UVJ stone 6-8 mm right flank pain right hydronephrosiss Plan/Recommendation Expulsive measures renal and bladder US to look for right ureteral jet If no ureteral jet, then proceed with right PNT per IR service. Outpatient management of the stone with URSLL and stent placement when stable Plan discussed with: KENA Antonio MD Mar 31, 2025 21:43
[2025-04-01] VITALS (14 sets, daily range): BP systolic 106–141; BP diastolic 74–93; PULSE 67–87; RESP 12–18; TEMP 97–98.1; O2SAT 92–99
[2025-04-01 06:33] LABS: Potassium 3.8 mmol/L (3.5-5.1); Sodium 140 mmol/L (136-145)
[2025-04-01 06:34] LABS: Anion Gap 10 (5-15); Carbon Dioxide 23 mmol/L (20-31)
[2025-04-01 06:39] LABS: BUN/Creatinine Ratio 8.5 (10.0-20.0); Blood Urea Nitrogen 15 mg/dL (9-23); Glucose 95 mg/dL (74-106)
[2025-04-01 06:43] LABS: Calcium 8.2 mg/dL (8.7-10.4); Chloride 107 mmol/L (98-107)
[2025-04-01 07:13] LABS: Hematocrit 34.2 % (41.0-53.0); Hemoglobin 12.0 g/dL (13.5-17.5); Mean Corpuscular Hemoglobin 28.8 pg (28.0-32.0); Mean Corpuscular Volume 82.2 fL (80.0-100.0); Nucleated Red Blood Cells % 0.0 %
--- NOTE | 2025-04-01 08:50 | DVH ---
INDICATION: Right flank pain TECHNIQUE: Multiple real-time sonographic images of the kidneys and bladder were obtained. COMPARISON: None FINDINGS: The right kidney measures 14 cm in length, which is normal in size. There is normal echogen icity of the right kidney. No hydronephrosis. The left kidney measures 15 cm in length, which is normal in size. There is normal echogenicity of th e left kidney. No hydronephrosis. No large intraluminal masses are seen in the bladder. Prior to voiding the bladder volume measures vo lume 599 cc. IMPRESSION: Moderate right hydronephrosis. Right renal stone not visualized.
[2025-04-01 09:47] LABS: INR 1.0 (0.9-1.15); Partial Thromboplastin Time 28.2 SEC (24.5-34.5); Prothrombin Time 10.6 sec (9.3-11.8)
[2025-04-01] MEDS ORDERED: LIDOCAINE 2%HCL (LOCAL ANESTH.) INJ 20ML MDV ONE (13:40)
[2025-04-01] MEDS ORDERED: MIDAZOLAM HCL 2MG/2ML 2ml VIAL (1mg/ml) ONE ×2 (13:40→14:02)
[2025-04-01] MEDS ORDERED: fentaNYL CITRATE 100 MCG/2 ML VL ONE (13:40)
[2025-04-01] MEDS ORDERED: cefTRIAXone 1GM/50ML D5W 50 ML IV ONE (13:52)
--- NOTE | 2025-04-01 17:24 | DVH ---
PROCEDURE: Genitourinary catheter placement Procedural Personnel Attending physician(s): John Marie Fellow physician(s): None Resident physician(s): None Advanced practice provider(s): None Pre-procedure diagnosis: Right UVJ stone Post-procedure diagnosis: Same Indication: Urinary obstruction No Additional clinical history: None Complications: No immediate complications. IMPRESSION: Right nephrostomy tube placement. Plan: Flush drain with 10 cc normal saline daily to maintain patency. PROCEDURE SUMMARY - Target organ: Unilateral kenaitze kidney - Image-guided placement of genitourinary catheter(s) - Additional procedure(s): None PROCEDURE DETAILS: Pre-procedure Consent: Informed consent for the procedure including risks, benefits and alternatives was obtained a nd time-out was performed prior to the procedure. Preparation: The site was prepared and draped using maximal sterile barrier technique including cutan eous antisepsis. Anesthesia/sedation Level of anesthesia/sedation: Moderate sedation (conscious sedation) Anesthesia/sedation administered by: Independent trained observer under attending supervision with co ntinuous monitoring of the patient s level of consciousness and physiologic status Total intra-service sedation time (minutes): 45 Genitourinary catheter placement Side:Right kenaitze Local anesthesia was administered. A needle was advanced into an interpolar calyx under ultrasound an d fluoroscopy guidance. A wire was advanced, the tract was serially dilated and a nephrostomy tube wa s placed . Contrast injection was performed. Genitourinary catheter placed: 8.5 Hungarian multipurpose drain Findings: Moderate hydroureteronephrosis External catheter securement: Non-absorbable suture and adhesive anchoring device Additional genitourinary system intervention Side:NA Genitourinary intervention: None Location of intervention: Not applicable Device used: Not applicable Description of intervention: Not applicable Post-intervention findings: Not applicable Contrast Contrast agent: Visipaque 320 Contrast volume (mL): 5 Radiation Dose Fluoroscopy time (mm:ss): 1:11 Reference air kerma (mGy): 20 Kerma area product (Gy-cm2): 4.06 Additional Details Additional description of procedure: None Registry event: V/3/f Device used: Not applicable Equipment details: None Specimens removed: None. A sample was not sent for analysis. Estimated blood loss (mL): Less than 10 Standardized report: [email or web address] Attestation Signer name: John Marie I attest that I was present for the entire procedure. I reviewed the stored images and agree with the report as written.
--- NOTE | 2025-04-01 17:24 | DVH ---
PROCEDURE: Genitourinary catheter placement Procedural Personnel Attending physician(s): John Marie Fellow physician(s): None Resident physician(s): None Advanced practice provider(s): None Pre-procedure diagnosis: Right UVJ stone Post-procedure diagnosis: Same Indication: Urinary obstruction No Additional clinical history: None Complications: No immediate complications. IMPRESSION: Right nephrostomy tube placement. Plan: Flush drain with 10 cc normal saline daily to maintain patency. PROCEDURE SUMMARY - Target organ: Unilateral [place] kidney - Image-guided placement of genitourinary catheter(s) - Additional procedure(s): None PROCEDURE DETAILS: Pre-procedure Consent: Informed consent for the procedure including risks, benefits and alternatives was obtained a nd time-out was performed prior to the procedure. Preparation: The site was prepared and draped using maximal sterile barrier technique including cutan eous antisepsis. Anesthesia/sedation Level of anesthesia/sedation: Moderate sedation (conscious sedation) Anesthesia/sedation administered by: Independent trained observer under attending supervision with co ntinuous monitoring of the patient s level of consciousness and physiologic status Total intra-service sedation time (minutes): 45 Genitourinary catheter placement Side:Right [place] Local anesthesia was administered. A needle was advanced into an interpolar calyx under ultrasound an d fluoroscopy guidance. A wire was advanced, the tract was serially dilated and a nephrostomy tube wa s placed . Contrast injection was performed. Genitourinary catheter placed: 8.5 Frisian multipurpose drain Findings: Moderate hydroureteronephrosis External catheter securement: Non-absorbable suture and adhesive anchoring device Additional genitourinary system intervention Side:NA Genitourinary intervention: None Location of intervention: Not applicable Device used: Not applicable Description of intervention: Not applicable Post-intervention findings: Not applicable Contrast Contrast agent: Visipaque 320 Contrast volume (mL): 5 Radiation Dose Fluoroscopy time (mm:ss): 1:11 Reference air kerma (mGy): 20 Kerma area product (Gy-cm2): 4.06 Additional Details Additional description of procedure: None Registry event: V/3/f Device used: Not applicable Equipment details: None Specimens removed: None. A sample was not sent for analysis. Estimated blood loss (mL): Less than 10 Standardized report: [email or web address] Attestation Signer name: John Marie I attest that I was present for the entire procedure. I reviewed the stored images and agree with the report as written.
--- NOTE | 2025-04-01 18:51 | DVHPNRES ---
Progress Note Date Seen: Apr 01, 2025 Resident Creating Document: ASHU FLORES Medical Necessity Reason Pt with a Central, PICC or Fol: No Subjective Review of Systems This is 49-year-old male with past medical history of kidney stones presents to the emergency department with recurrent right-sided flank pain and right lower abdominal pain. He was previously evaluated at [facility] two weeks ago and diagnosed with kidney stones. At that time, he was prescribed Flomax, Refugio, and Ibuprofen. Patient reports that pain had resolved temporarily but became significantly worse starting yesterday afternoon and led to ED visit. Today, the patient also reports new onset of right groin pain radiating to the right flank, accompanied by nausea. He denies dysuria, urinary frequency, hematuria, vomiting, diarrhea, fever, chills, or other associated symptoms. He notes that the previously prescribed medications have not provided relief. Renal US shows right kidney hydronephrosis seen, measures 1.4 cm AP. Right bladder jet N/V. Urology recommend Expulsive measures. Outpatient management of the stone with URSLL and stent placement when stable. Objective vital signs Vital Sign Date Time Temp Pulse Resp B/P (MAP) Pulse Ox O2 Delivery O2 Flow Rate FiO2 04/01/25 17:00 97.2 75 16 106/76 (86) 96 97.2 04/01/25 16:23 Room Air* 0 21 Total Intake and Output 03/31/25 03/31/25 04/01/25 15:00 23:00 07:00 Intake Total 150 ml Balance 150 ml medications Current Medications Medications Dose Ordered Sig/Janet Route Start Time Stop Time Status Last Admin Dose Admin Acetaminophen/ Hydrocodone Bitart 1 tab Q4HP PRN PO 03/31/25 04:30 03/31/25 10:58 1 TAB Ondansetron HCl 4 mg Q4HP PRN IV 03/31/25 04:30 03/31/25 05:52 4 MG Acetaminophen 650 mg Q6HP PRN PO 03/31/25 04:30 Morphine Sulfate 2 mg Q4HPRN PRN IV 03/31/25 04:30 04/01/25 09:59 2 MG Tamsulosin HCl 0.4 mg QPM PO 03/31/25 18:00 04/01/25 18:50 0.4 MG Sodium Chloride 1,000 ml @ 100 mls/hr Q10H IV 03/31/25 10:30 04/01/25 18:50 100 MLS/HR Examination Gen: 49-year-old male in mild distress Skin: Warm, dry, normal color and texture, no rash. HEENT: Normocephalic atraumatic, mucous membranes moist and pink. Neck: Cervical and supraclavicular nodes normal without enlargement, trachea is midline, thyroid gland is normal without masses. Pulmonary: Clear to auscultation and percussion bilaterally. Cardiac: Regular rate and rhythm. No murmur Abdomen: Soft, right flank pain, Right Costovertebral Angle Tenderness, nondistended, bowel sounds present all 4 quadrants, no guarding, no rigidity, no organomegaly. Extremities: No cyanosis, clubbing, no edema Neuro: Cranial nerves II through XII grossly intact, normal affect and speech, no focal motor deficits. laboratory and microbiology Laboratory Tests 04/01/25 04:49 Test 04/01/25 04:49 Range/Units Serum Glucose 95 74-106 mg/dL Labs and/or images reviewed: Labs reviewed by me, Image(s) reviewed by me (RN) Problem List/Assessment/Plan Problem List/Assessment/Plan # obstructive nephrolithiasis with hydroureteronephrosis # possible pyelonephritis # GUILLERMO due to above -Refugio -Zofran -Tylenol -Flomax 0.4 mg -Sodium chloride -Urology consult-Expulsive measures. If no ureteral jet, then proceed with right PNT per IR service. Outpatient management of the stone with URSLL and stent placement when stable -CT: 8 mm obstructive stone at the right UVJ with associated mild to moderate hydroureteronephrosis. #Morbid obesity - BMI 36.1 kg/m2 - healthy diet Goals of care: Full code, discussed for >16 minutes on 04/01/25 Plan discussed with patient Plan discussed with Dr. Bertrand Plan discussed with: Patient, Other My Orders My Orders Orders - ASHU FLORES Procedure Category Date Status Time Percutaneous XY 04/01/25 Resulted Nephrostomy 14:31 Date of Service: Apr 01, 2025 Billing Provider: TOLU BERTRAND MD Common Visit Codes: 03884-BMISOPCAOD INP/OBS CARE(HIGH) ASHU FLORES Apr 01, 2025 18:51 TOLU BERTRAND MD Apr 03, 2025 21:18
[2025-04-02 01:00] VITALS: BP 97/69; PULSE 66; RESP 17; TEMP 98.2; O2SAT 96
[2025-04-02 04:56] VITALS: BP 130/92; PULSE 75; RESP 18; TEMP 97.7; O2SAT 96
[2025-04-02 08:08] LABS: Hematocrit 35.3 % (41.0-53.0); Hemoglobin 12.0 g/dL (13.5-17.5); Mean Corpuscular Hemoglobin 28.4 pg (28.0-32.0); Mean Corpuscular Volume 83.3 fL (80.0-100.0); Nucleated Red Blood Cells % 0.1 %
[2025-04-02 08:11] LABS: Chloride 107 mmol/L (98-107); Potassium 4.0 mmol/L (3.5-5.1); Sodium 141 mmol/L (136-145)
[2025-04-02 08:12] LABS: Anion Gap 7 (5-15); Carbon Dioxide 27 mmol/L (20-31)
[2025-04-02 08:17] LABS: BUN/Creatinine Ratio 8.5 (10.0-20.0); Blood Urea Nitrogen 10 mg/dL (9-23); Glucose 88 mg/dL (74-106)
[2025-04-02 08:19] LABS: Calcium 8.6 mg/dL (8.7-10.4)
[2025-04-02 09:00] VITALS: BP 122/79; PULSE 62; RESP 20; TEMP 98.8; O2SAT 97
[2025-04-02] MEDS ORDERED: HYDR-4798 PO (13:14)
[2025-04-02] MEDS ORDERED: CEPH500C PO (13:16)
--- NOTE | 2025-04-02 17:19 | DVHDSRES ---
Discharge Summary Date of Admission Resident Creating Document: ASHU FLORES RESIDENT Mar 31, 2025 at 04:19 Date of Discharge: Apr 02, 2025 Admitting Diagnosis Kidney stones Labs/Diagnostic Data: Laboratory Results Test 04/02/25 07:20 04/01/25 09:01 03/31/25 03:00 White Blood Count 6.9 10^3/uL (4.4-10.8) Red Blood Count 4.24 10^6/uL (4.5-5.90) Hemoglobin 12.0 g/dL (13.5-17.5) Hematocrit 35.3 % (41.0-53.0) Mean Corpuscular Volume 83.3 fL (80.0-100.0) Mean Corpuscular Hemoglobin 28.4 pg (28.0-32.0) Mean Corpuscular Hemoglobin Concent 34.1 g/dL (32.0-36.0) Red Cell Distribution Width 12.8 % (11.8-14.3) Platelet Count 193 10^3/uL (140-450) Mean Platelet Volume 9.3 fL (6.9-10.8) Neutrophils (%) (Auto) 73.6 % (37.0-80.0) Lymphocytes (%) (Auto) 18.7 % (10.0-50.0) Monocytes (%) (Auto) 6.8 % (0.0-12.0) Eosinophils (%) (Auto) 0.8 % (0.0-7.0) Basophils (%) (Auto) 0.1 % (0.0-2.0) Neutrophils # (Auto) 5.0 10 ^3/uL (1.6-8.6) Lymphocytes # (Auto) 1.3 10 ^3/uL (0.4-5.4) Monocytes # (Auto) 0.5 10 ^3/uL (0-1.3) Eosinophils # (Auto) 0.1 10 ^3/uL (0-0.8) Basophils # (Auto) 0 10 ^3/uL (0-0.2) Nucleated Red Blood Cells 0.1 % Sodium Level 141 mmol/L (136-145) Potassium Level 4.0 mmol/L (3.5-5.1) Chloride Level 107 mmol/L (98-107) Carbon Dioxide Level 27 mmol/L (20-31) Anion Gap 7 (5-15) Blood Urea Nitrogen 10 mg/dL (9-23) Creatinine 1.17 mg/dL (0.700-1.30) Glomerular Filtration Rate Calc 77 mL/min (>90) BUN/Creatinine Ratio 8.5 (10.0-20.0) Serum Glucose 88 mg/dL (74-106) Calcium Level 8.6 mg/dL (8.7-10.4) Prothrombin Time 10.6 sec (9.3-11.8) Prothrombin Time INR 1.0 (0.9-1.15) Activated Partial Thromboplast Time 28.2 SEC (24.5-34.5) Urine Color Light-yellow (Yellow) Urine Clarity Clear (Clear) Urine pH 5.0 (5.0-9.0) Urine Specific [place] 1.015 (1.001-1.035) Urine Protein Negative (Negative) Urine Ketones Negative (Negative) Urine Blood Negative /uL (Negative) Urine Nitrite Negative (Negative) Urine Bilirubin Negative (Negative) Urine Urobilinogen Normal mg/dL (Negative) Urine Leukocyte Esterase Negative /uL (Negative) Urine RBC None seen /hpf (0 - 3) Urine Microscopic WBC 1 /HPF (0-3) Urine Squamous Epithelial Cells None seen /hpf (<5) Urine Uric Acid Crystals Mod /hpf (None Seen) Urine Bacteria None seen /hpf (None Seen) Urine Mucus Few (None Seen) Urine Glucose Normal mg/dL (Normal) Other Laboratory Tests 04/02/25 07:20 Brief Hx & Hospital Course: This is a 49-year-old male with a known history of nephrolithiasis who presented to the emergency department with recurrent right-sided flank and lower abdominal pain. He was previously evaluated at [facility] two weeks prior and diagnosed with kidney stones, for which he was prescribed Flomax, Clayton, and Ibuprofen. The patient reported temporary relief, but symptoms worsened significantly yesterday, prompting his return to the ED. He now also reports new right groin pain radiating to the flank, along with nausea. He denies dysuria, hematuria, fever, chills, or other systemic symptoms. On evaluation, the patient was in mild distress. Physical exam revealed right costovertebral angle tenderness. Renal ultrasound showed right-sided hydronephrosis (1.4 cm AP) and absent right bladder jet. CT imaging confirmed an 8 mm obstructive stone at the right ureterovesical junction (UVJ) with associated mild to moderate hydroureteronephrosis.Urology was consulted and recommended expulsive therapy. If no ureteral jet is observed, right percutaneous nephrostomy tube (PNT) placement via IR will be considered. Outpatient management with ureteroscopy and laser lithotripsy (URSLL) and stent placement is planned once the patient is stable. The patient was treated with Clayton, Zofran, Tylenol, Flomax, and IV fluids. A healthy diet was recommended due to morbid obesity (BMI 36.1 kg/m). Disposition will depend on clinical stability and response to therapy. The patient was discharged with Cephalexin 500 mg PO BID for 7 days for prophylactic coverage. Operations or Procedures PROCEDURE(s): PERNEPH - PERCUTANEOUS NEPHROSTOMY REASON: RT DRAIN PL ORDER NUMBER(s): [id number], ACCESSION NUMBER(s): [id number] PROCEDURE: Genitourinary catheter placement Procedural Personnel Attending physician(s): John Marie Fellow physician(s): None Resident physician(s): None Advanced practice provider(s): None Pre-procedure diagnosis: Right UVJ stone Post-procedure diagnosis: Same Indication: Urinary obstruction No Additional clinical history: None Complications: No immediate complications. IMPRESSION: Right nephrostomy tube placement. Plan: Flush drain with 10 cc normal saline daily to maintain patency. PROCEDURE SUMMARY - Target organ: Unilateral [place] kidney - Image-guided placement of genitourinary catheter(s) - Additional procedure(s): None PROCEDURE DETAILS: Pre-procedure Consent: Informed consent for the procedure including risks, benefits and alternatives was obtained and time-out was performed prior to the procedure. Preparation: The site was prepared and draped using maximal sterile barrier technique including cutaneous antisepsis. Anesthesia/sedation Level of anesthesia/sedation: Moderate sedation (conscious sedation) Anesthesia/sedation administered by: Independent trained observer under attending supervision with continuous monitoring of the patient s level of consciousness and physiologic status Total intra-service sedation time (minutes): 45 Genitourinary catheter placement Side:Right [place] Local anesthesia was administered. A needle was advanced into an interpolar calyx under ultrasound and fluoroscopy guidance. A wire was advanced, the tract was serially dilated and a nephrostomy tube was placed . Contrast injection was performed. Genitourinary catheter placed: 8.5 [place]ican multipurpose drain Findings: Moderate hydroureteronephrosis External catheter securement: Non-absorbable suture and adhesive anchoring device Additional genitourinary system intervention Side:NA Genitourinary intervention: None Location of intervention: Not applicable Device used: Not applicable Description of intervention: Not applicable Post-intervention findings: Not applicable Contrast Contrast agent: Visipaque 320 Contrast volume (mL): 5 Radiation Dose Fluoroscopy time (mm:ss): 1:11 Reference air kerma (mGy): 20 Kerma area product (Gy-cm2): 4.06 Additional Details Additional description of procedure: None Registry event: V/3/f Device used: Not applicable Equipment details: None Specimens removed: None. A sample was not sent for analysis. Estimated blood loss (mL): Less than 10 Standardized report: [email or web address] Attestation Signer name: John Marie I attest that I was present for the entire procedure. I reviewed the stored images and agree with the report as written. PROCEDURE(s): THOUS - US GUIDANCE FOR NEEDLE PLACEME REASON: right nehprostomy tube placement ORDER NUMBER(s): [id number], ACCESSION NUMBER(s): [id number] PROCEDURE: Genitourinary catheter placement Procedural Personnel Attending physician(s): John Marie Fellow physician(s): None Resident physician(s): None Advanced practice provider(s): None Pre-procedure diagnosis: Right UVJ stone Post-procedure diagnosis: Same Indication: Urinary obstruction No Additional clinical history: None Complications: No immediate complications. IMPRESSION: Right nephrostomy tube placement. Plan: Flush drain with 10 cc normal saline daily to maintain patency. PROCEDURE SUMMARY - Target organ: Unilateral [place] kidney - Image-guided placement of genitourinary catheter(s) - Additional procedure(s): None PROCEDURE DETAILS: Pre-procedure Consent: Informed consent for the procedure including risks, benefits and alternatives was obtained and time-out was performed prior to the procedure. Preparation: The site was prepared and draped using maximal sterile barrier technique including cutaneous antisepsis. Anesthesia/sedation Level of anesthesia/sedation: Moderate sedation (conscious sedation) Anesthesia/sedation administered by: Independent trained observer under attending supervision with continuous monitoring of the patient s level of consciousness and physiologic status Total intra-service sedation time (minutes): 45 Genitourinary catheter placement Side:Right [place] Local anesthesia was administered. A needle was advanced into an interpolar calyx under ultrasound and fluoroscopy guidance. A wire was advanced, the tract was serially dilated and a nephrostomy tube was placed . Contrast injection was performed. Genitourinary catheter placed: 8.5 [place] multipurpose drain Findings: Moderate hydroureteronephrosis External catheter securement: Non-absorbable suture and adhesive anchoring device Additional genitourinary system intervention Side:NA Genitourinary intervention: None Location of intervention: Not applicable Device used: Not applicable Description of intervention: Not applicable Post-intervention findings: Not applicable Contrast Contrast agent: Visipaque 320 Contrast volume (mL): 5 Radiation Dose Fluoroscopy time (mm:ss): 1:11 Reference air kerma (mGy): 20 Kerma area product (Gy-cm2): 4.06 Additional Details Additional description of procedure: None Registry event: V/3/f Device used: Not applicable Equipment details: None Specimens removed: None. A sample was not sent for analysis. Estimated blood loss (mL): Less than 10 Standardized report: [email or web address] Attestation Signer name: John Marie I attest that I was present for the entire procedure. I reviewed the stored images and agree with the report as written. PROCEDURE(s): KIDUS - KIDNEY REASON: Right flank pain ORDER NUMBER(s): [id number], ACCESSION NUMBER(s): [id number] INDICATION: Right flank pain TECHNIQUE: Multiple real-time sonographic images of the kidneys and bladder were obtained. COMPARISON: None FINDINGS: The right kidney measures 14 cm in length, which is normal in size. There is normal echogenicity of the right kidney. No hydronephrosis. The left kidney measures 15 cm in length, which is normal in size. There is normal echogenicity of the left kidney. No hydronephrosis. No large intraluminal masses are seen in the bladder. Prior to voiding the bladder volume measures volume 599 cc. IMPRESSION: Moderate right hydronephrosis. Right renal stone not visualized. --- PROCEDURE(s): ABPL - CT AB PEL WO CON-NO ORAL OR IV REASON: Flank Pain ORDER NUMBER(s): [id number], ACCESSION NUMBER(s): [id number] Exam: CT CT AB PEL WO CON-NO ORAL OR IV History: Flank Pain Comparison Study: CT CT AB PEL WO CON-NO ORAL OR IV on DOS: 03/19/25 TECHNIQUE: Multidetector CT of the abdomen was performed from lung bases to pubic symphysis. Imaging was performed without IV contrast. Axial, coronal and sagittal multiplanar reformats were obtained from the axial data set by the technologist. Radiation Dose Information: CT Dose: CTDI volume is 27.13 mGy. Dose-length product is 3.92 mGy*cm FINDINGS: Evaluation of solid organs is limited due to lack of intravenous contrast use. Findings: Lung Bases: No acute or significant lung base finding. Normal heart size. No pleural or pericardial effusion. Liver: The liver is normal in size. No focal lesions. Gallbladder and Biliary Tree: Unremarkable Spleen: Unremarkable Pancreas: The pancreas is grossly normal in appearance. Adrenal Glands: Unremarkable Kidneys: 8 mm obstructive stone at the right UVJ with associated mild to moderate hydroureteronephrosis. left collecting system is unremarkable. Bladder: Grossly unremarkable for degree of distention. Bowel: The stomach is grossly normal in appearance. Small bowel and colon are normal in caliber and distribution. The appendix is not visualized; however, no secondary findings of acute appendicitis identified. Ascites: Absent Lymphadenopathy: No mesenteric, retroperitoneal or periportal lymphadenopathy. Abdominal Wall and Mesentery: Unremarkable. Vasculature: The visualized abdominal aorta is normal in size and caliber. Evaluation of abdominal and pelvic vessels is limited due to lack of intravenous contrast. Pelvic Organs: Unremarkable Musculoskeletal: No aggressive focal bony lesions, acute fractures or dislocation. Multilevel degenerative changes lumbar spine most pronounced at L4- L5. Soft tissues: Unremarkable IMPRESSION: 8 mm obstructive stone at the right UVJ with associated mild to moderate hydroureteronephrosis. Condition at Discharge: Stable (RN) Final Diagnosis/Problems List # obstructive nephrolithiasis with hydroureteronephrosis # possible pyelonephritis # GUILLERMO due to above # Morbid obesity Discharge Disposition: Home Discharge Instruct/Medications Diet: Regular Activity: No Restrictions, As Tolerated Follow Up/Referral: Follow up with clinic in 1 week. Follow Medications: Cefalexin 500 mg bid for 7 days continue home medication as per EMR Scheduled Cephalexin Monohydrate (Cephalexin), 1 CAP PO BID Tamsulosin Hcl (Flomax), 1 CAP PO DAILY Scheduled PRN Hydrocodone-Acetaminophen (Hydrocodone Bitartrate/AC 10-325 mg), 1 TAB PO Q8HPRN PRN Ibuprofen Micronized (Ibuprofen), 600 MG PO Q8HP PRN Discharge Statement: "Patient was advised to return to the ER or call 911 if any headaches, dizziness, shortness of breath, chest pain, abdominal pain, bleeding, fevers, or worsening of medical condition. Patient was counseled about treatment plan, medications, possible side effects, patientverbalized understanding. All questions were answered to the best of my ability. This discharge took greater then 30 minutes in planning, reviewing documentation, counseling the patient, and discussing with other team members." ASSESSMENT ASSESSMENT Assessment # obstructive nephrolithiasis with hydroureteronephrosis # possible pyelonephritis # GUILLERMO due to above # Morbid obesity ASHU FLORES RESIDENT Apr 02, 2025 17:18
== END 2025-04-02 12:17 | disposition home or self-care (01) | DRG 694 ==
LOC: ER 23:52 → OVERFLOW 03-31 04:19 → WEST WING 03-31 18:15
PROVIDERS: ADMIT Internal Medicine Geriatric Medicine; ATTEND Emergency Medicine
PROC: 0T9030Z Drainage of Right Kidney with Drainage Device, Percutaneous Approach (ICD-10-PCS; principal; 2025-04-01)
DX: N13.2 Hydronephrosis with renal and ureteral calculous obstruction (principal); Z68.36 Body mass index [BMI] 36.0-36.9, adult; E66.01 Morbid (severe) obesity due to excess calories; N17.9 Acute kidney failure, unspecified; N04.9 Nephrotic syndrome with unspecified morphologic changes; Z87.442 Personal history of urinary calculi; Z88.6 Allergy status to analgesic agent
CPT/HCPCS: 36415; 74176; 74425; 76775; 76942; 80048; 81001; 85025; 85610; 85730; G0378; J1885; J2250; J2405

== ENCOUNTER → 2025-04-20 | Day surgery (SDC) | payer OTHER ==
[2025-04-16 14:50] LABS: Urine Protein, UAD TRACE (Negative)
[2025-04-16 14:52] LABS: Hematocrit 38.7 % (41.0-53.0); Hemoglobin 13.3 g/dL (13.5-17.5); Mean Corpuscular Hemoglobin 27.9 pg (28.0-32.0); Mean Corpuscular Volume 81.4 fL (80.0-100.0); Nucleated Red Blood Cells % 0.0 %
[2025-04-16 15:01] LABS: INR 1.01 (0.9-1.15); Partial Thromboplastin Time 29.3 SEC (24.5-34.5); Prothrombin Time 10.7 sec (9.3-11.8)
[2025-04-16 15:26] LABS: Alanine Aminotransferase 29 U/L (7-40); Albumin 4.5 g/dL (3.2-4.8); Alkaline Phosphatase 100 U/L (46-116); Anion Gap 8 (5-15); BUN/Creatinine Ratio 10.4 (10.0-20.0); Blood Urea Nitrogen 12 mg/dL (9-23); Calcium 9.4 mg/dL (8.7-10.4); Carbon Dioxide 27 mmol/L (20-31); Chloride 104 mmol/L (98-107); Glucose 83 mg/dL (74-106); Potassium 4.0 mmol/L (3.5-5.1); Sodium 139 mmol/L (136-145); Total Protein 7.9 g/dL (5.7-8.2)
[2025-04-16 15:27] LABS: Bilirubin, Total 0.9 mg/dL (0.2-1.0)
[~2025-04-20] VITALS: Ht 188 cm; Wt 129.3 kg
[~2025-04-20] MED LIST changes: +CIPROFLOXACIN 400MG/200ML 200 ML IV ONE; -HYDR-4798 PO; +HYDROmorphone HCL 2 MG/ML VL/or syr IV PRN; -IBUP1TAB5 PO; +MIDAZOLAM HCL 2MG/2ML 2ml VIAL (1mg/ml) IV PRN; +MIDAZOLAM HCL 2MG/2ML 2ml VIAL (1mg/ml) ONE; +MORPHINE SULFATE 4 MG/ML SYR/VIAL IV PRN; +ONDANSETRON HCL 4 MG/2 ML VIAL IV PRN; -TAMS-35 PO; +fentaNYL CITRATE 100 MCG/2 ML VL ONE; +hydrALAZINE HCL 20 MG/ML VL IV PRN
[2025-04-20 11:45] VITALS: PULSE 77; RESP 12; TEMP 97; O2SAT 97
--- NOTE | 2025-04-20 11:48 | DVHNC2 ---
Procedure - OPERATIVE REPORT Pre-op. Diagnosis: right distal ureteral calculus, 6-8 mm right percutaneous nephrostomy tube in-situ Post-op. Diagnosis: right percutaneous nephrostomy tube, in situ Operation: cystoscopy with right retrograde pyelogram and right antegrade nephrostogram Anesthesia: general Indications: The patient underwent a right percutaneous nephrostomy tube placement several weeks ago for obstructing right distal ureteral calculus measuring 6-8 mm. He is here today to undergo right ureteroscope laser lithotripsy with stent placement and removal of his nephrostomy tube. The indications, risks, alternatives and benefits of right ureteroscope with laser lithotripsy with stent placement and removal as nephrostomy tube are discussed with the patient and . All questions were encouraged and answered. He elected to proceed Details of Procedure: The patient was taken to the operating room and underwent general anesthesia. He was placed in dorsal lithotomy position with the area of the genitalia prepped and draped in usual sterile manner. Twenty-one Serbian rigid cystoscope was used to inspect the urethra in the bladder. Prostate was slightly prominent bilaterally but there was no evidence of median lobe obstruction. Bladder was evaluated with minimal trabeculation noted and there was a small yellow stone fragment floating that was irrigated out. The right ureteric orifice was cannulated with six Serbian open-ended catheter and retrograde pyelogram was performed. There was no filling defect or obstructive uropathy noted. To confirm I performed an antegrade nephrostogram with 20 cc of contrast. There was no evidence of obstructive uropathy. I elected to close the nephrostomy tube temporarily for 24 hours. It will be removed as outpatient in the office setting. The patient was awakened and taken to recovery room in stable condition. Specimens: none Complications: none Findings: The previously reported right ureteral stone appears to have passed Notes: nephrostomy tube will be closed for 24 hours and removed in the office setting KENA VELASQUEZ MD Apr 20, 2025 11:48
[2025-04-20 12:30] VITALS: BP 109/73; PULSE 75; RESP 12; O2SAT 96
--- NOTE | 2025-04-20 12:34 | DVH ---
C-ARM FLUOROSCOPY: PROCEDURE: Right retrograde nephrostogram FLUOROSCOPY TIME: 2 minutes and 8 seconds DAP: 74.9 mgy FINDINGS: Spot intraoperative C arm radiographs demonstrating right retrograde nephrostogram. IMPRESSION: Please refer to surgical report for detailed findings.
[2025-04-20] MEDS: IOHEXOL 300 MG/ML 100ML BOTTLE IJ ONE (16:06)
== END | disposition home or self-care (01) ==
LOC: SUR 07:07
PROVIDERS: ATTEND Urology
DX: N13.2 Hydronephrosis with renal and ureteral calculous obstruction (principal); N32.89 Other specified disorders of bladder; E66.01 Morbid (severe) obesity due to excess calories; Z68.38 Body mass index [BMI] 38.0-38.9, adult; Z87.442 Personal history of urinary calculi; Z88.6 Allergy status to analgesic agent
CPT/HCPCS: 36415; 50432; 52005; 74018; 74220; 80053; 81001; 85025; 85610; 85730; 87086; J0744; J1100; J2250; J3010; Q9967; 76000

== ENCOUNTER 2025-05-10 18:10 | Inpatient (IN) | payer OTHER ==
[~2025-05-10] VITALS: Ht 188 cm; Wt 132.3 kg
--- NOTE | 2025-05-10 18:49 | ED.PDOC ---
General HPI Comments This is a 49 year old male presenting to the ED with chief complaint of kidney stone procedure. Patient reports that he was advised by Dr. Noyola today to come to the ED to be admitted for right kidney stone procedure/removal tomorrow. Patient states that he has been on Flomax and his pain level has only been about a 1- 2/10. Patient denies any dysuria, hematuria, fever, chills, or flank pain. Chief Complaint: Urinary Time Seen by MD: 18:47 Reviewed notes: Nurses Notes, Medications, Allergies Allergies: Coded Allergies: Aspirin (Unverified Allergy, Severe, angioedema, SOB, 04/16/25) Information Source: Patient Mode of Arrival: Ambulatory Severity: Moderate Timing: Days Duration: Since onset Prehospital treatment: None Onset: Spontaneous Symptoms: None History of: Kidney stone Location: (R) Flank Penile discharge: None Modifying factors: None associated signs and symptoms: Flank Pain Past Medical History PAST MEDICAL HISTORY: Kidney Stones Surgical History: Appendectomy Family History Family History: Unknown Social History Smoker: Non-Smoker Alcohol: Denies ETOH Use Drugs: Denies Drug Use Lives In: Home Constitutional: denies: chills, diaphoresis, fatigue, fever, malaise, sweats, weakness, others EENTM: denies: blurred vision, double vision, ear bleeding, ear discharge, ear drainage, ear pain, ear ringing, eye pain, eye redness, hearing loss, mouth pain, mouth swelling, nasal discharge, nose bleeding, nose congestion, nose pain, photophobia, tearing, throat pain, throat swelling, voice changes, others Respiratory: denies: cough, hemoptysis, orthopnea, SOB at rest, shortness of breath, SOB with excertion, stridor, wheezing, others Cardiovascular: denies: chest pain, dizzy spells, diaphoresis, Dyspnea on exertion, edema, irregular heart beat, left arm pain, lightheadedness, palpitations, PND, syncope, others Gastrointestinal: denies: abdomen distended, abdominal pain, blood streaked bowels, constipated, diarrhea, dysphagia, difficulty swallowing, hematemesis, melena, nausea, poor appetite, poor fluid intake, rectal bleeding, rectal pain, vomiting, others Genitourinary: reports: flank pain; denies: burning, dysuria, frequency, hematuria, incontinence, penile discharge, penile sore, pain, testicle pain, testicle swelling, urgency, others Neurological: denies: dizziness, fainting, headache, left sided numbness, left sided weakness, numbness, paresthesia, pre-existing deficit, right sided numbness, right sided weakness, seizure, speech problems, tingling, tremors, weakness, others Musculoskeletal: denies: back pain, gout, joint pain, joint swelling, muscle pain, muscle stiffness, neck pain, others Integumetry: denies: bruises, change in color, change in hair/nails, dryness, laceration, lesions, lumps, rash, wounds, others Allergic/Immunocompromised: denies: Difficulty Healing, Frequent Infections, Hives, Itching, others Hematologic/Lymphatic: denies: anemia, blood clots, easy bleeding, easy bruising, swollen glands, others Endocrine: denies: excessive hunger, excessive sweating, excessive thirst, excessive urination, flushing, intolerance to cold, intolerance to heat, unexplained weight gain, unexplained weight loss, others Psychiatric: denies: anxiety, bipolar disorder, depression, hopeless, panic disorder, schizophrenia, sleepless, suicidal, others All Other Systems: Reviewed and Negative Physical Exam General Appearance: No Apparent Distress HEENT: Other (Pupils and face symmetric. Moist mucous membranes.) Neck: Full Range of Motion, Normal Inspection Respiratory: Lungs Clear, No Accessory Muscle Use, No Respiratory Distress, Normal Breath Sounds Cardiovascular: No Edema, No JVD, Regular Rate/Rhythm Breast Exam: Deferred Gastrointestinal: Soft, Other (Mild right flank and right-sided abdominal te nderness to palpation) Genitalia: Deferred Pelvic: Deferred Rectal: Deferred Extremities: Normal inspection, Normal range of motion, Non-tender, No pedal edema Neurologic: Alert (Oriented x4), Normal Affect, Normal Mood, Other (Ambulatory) Cerebellar Function: NOT DONE Reflexes: NOT DONE Skin: Dry, Normal Color, Warm Lymphatic: NOT DONE Was a procedure done? Was a procedure done?: No Differential Diagnosis Kidney stone (Female): Musculoskeletal pain, Urolithiasis Kidney stone (Male): Renal failure, Urinary obstruction, Renal infarction, Urinary tract infection Urinary Problem (Male): Bladder Outlet, Bladder Obstruction X-Ray, Labs, Meds, VS Vital Signs Date Time Temp Pulse Resp B/P (MAP) Pulse Ox O2 Delivery O2 Flow Rate FiO2 05/10/25 18:13 97.4 76 20 131/76 97 97.4 Lab Test 05/10/25 19:15 Range/Units White Blood Count 7.1 4.4-10.8 10^3/uL Red Blood Count 4.64 4.5-5.90 10^6/uL Hemoglobin 12.7 L 13.5-17.5 g/dL Hematocrit 38.4 L 41.0-53.0 % Mean Corpuscular Volume 82.8 80.0-100.0 fL Mean Corpuscular Hemoglobin 27.4 L 28.0-32.0 pg Mean Corpuscular Hemoglobin Concent 33.1 32.0-36.0 g/dL Red Cell Distribution Width 13.7 11.8-14.3 % Platelet Count 320 140-450 10^3/uL Mean Platelet Volume 8.1 6.9-10.8 fL Neutrophils (%) (Auto) 59.8 37.0-80.0 % Lymphocytes (%) (Auto) 31.6 10.0-50.0 % Monocytes (%) (Auto) 4.7 0.0-12.0 % Eosinophils (%) (Auto) 3.5 0.0-7.0 % Basophils (%) (Auto) 0.4 0.0-2.0 % Neutrophils # (Auto) 4.2 1.6-8.6 10 ^3/uL Lymphocytes # (Auto) 2.2 0.4-5.4 10 ^3/uL Monocytes # (Auto) 0.3 0-1.3 10 ^3/uL Eosinophils # (Auto) 0.2 0-0.8 10 ^3/uL Basophils # (Auto) 0 0-0.2 10 ^3/uL Nucleated Red Blood Cells 0.0 % Prothrombin Time 10.2 9.3-11.8 sec Prothrombin Time INR 0.96 0.9-1.15 Activated Partial Thromboplast Time 28.0 24.5-34.5 SEC Sodium Level 139 136-145 mmol/L Potassium Level 4.0 3.5-5.1 mmol/L Chloride Level 106 98-107 mmol/L Carbon Dioxide Level 24 20-31 mmol/L Anion Gap 9 5-15 Blood Urea Nitrogen 11 9-23 mg/dL Creatinine 1.14 0.700-1.30 mg/dL Glomerular Filtration Rate Calc 80 >90 mL/min BUN/Creatinine Ratio 9.6 L 10.0-20.0 Serum Glucose 89 74-106 mg/dL Calcium Level 9.1 8.7-10.4 mg/dL [address] [address] Ph: [phone] DIAGNOSTIC IMAGING Diagnostic Imaging Report : [id number] Signed PATIENT: MITESH PATEL ACCT: [id number] UNIT: [id number] : 1975 LOC: ER ROOM / BED: / AGE / SEX: 49 / M ADM STATUS: REG ER SERVICE 34 ORDERING PHYSICIAN: MARIELA CONTE MD PROCEDURE(s): ABPL - CT AB PEL WO CON-NO ORAL OR IV REASON: eval kidney stone position ORDER NUMBER(s): [id number], ACCESSION NUMBER(s): [id number] Exam: CT CT AB PEL WO CON-NO ORAL OR IV History: eval kidney stone position Comparison Study: XY KUB ABDOMEN SINGLE VIEW on DOS: 04/20/25, CT CT AB PEL WO CON-NO ORAL OR IV on DOS: 03/31/25, CT CT AB PEL WO CON-NO ORAL OR IV on DOS: 03/19/25 TECHNIQUE: Multidetector CT of the abdomen and pelvis was performed from lung bases to pubic symphysis. Imaging was performed without IV contrast. Axial, coronal, and sagittal multiplanar reformats were obtained from the axial data set by the technologist. RADIATION DOSE: CTDI vol 27.6 mGy. DLP 1614.43 mGy.cm Findings: Lungs: Lower lobe calcified granuloma. Liver: Unremarkable. Spleen: Unremarkable. Pancreas: Unremarkable. Gallbladder: Contracted in appearance. Adrenals: Unremarkable Kidneys: There is redemonstration of a 6 mm calculus situated within the distal right ureter, not significantly changed. There is decreased right hydroureteronephrosis. Pelvic Viscera: Unremarkable. Vasculature: Unremarkable. Retroperitoneum: Shotty retroperitoneal nodes. Bowel: No bowel obstruction. Musculoskeletal: Unchanged sclerotic and erosive changes across the opposing endplates of L4-5. Soft tissues: Tiny fat containing umbilical hernia. Impression: 1. No significant change in appearance of a 6 mm calculus situated within the distal right ureter. Slight interval decrease in right hydroureteronephrosis. 2. Unchanged additional findings as detailed. ATED BY: JULIANNA BALLARD MD DICTATED DATE/TIME: 05/10/251921 SIGNED BY: JULIANNA BALLARD MD SIGNED DATE/TIME: 05/10/251921 CC: [place] [id number] Ph: [phone] DIAGNOSTIC IMAGING Diagnostic Imaging Report : [id number] Signed PATIENT: MITESH PATEL ACCT: [id number] UNIT: [id number] : 1975 LOC: ER ROOM / BED: / AGE / SEX: 49 / M ADM STATUS: REG ER SERVICE 34 ORDERING PHYSICIAN: MARIELA CONTE MD PROCEDURE(s): CXR1 - CHEST XRAY 1 VIEW REASON: pre-op ORDER NUMBER(s): [id number], ACCESSION NUMBER(s): [id number] CHEST RADIOGRAPH Indication: pre-op Technique: Single frontal view of the chest was obtained COMPARISON: None FINDINGS: Lungs and pleural spaces are clear. Cardiac silhouette and yrn are within normal limits. Bones and soft tissues demonstrate no significant abnormality. IMPRESSION: 1. No acute disease. ATED BY: SEAN RESTREPO MD DICTATED DATE/TIME: 05/10/251918 SIGNED BY: SEAN RESTREPO MD SIGNED DATE/TIME: 05/10/251918 CC: X-Ray, Labs, Meds, VS Comment 49-year-old male with a history of kidney stones referred by Dr. Noyola for hospital admission for kidney stone removal procedure tomorrow morning. Vitals unremarkable Exam remarkable for mild right flank and right mid abdominal tenderness to pa lpation Rhythm strip independently interpreted by me: Sinus rhythm, rate 76, no ectopy. Preop Chest x-ray unremarkable CT abdomen and pelvis: Impression: 1. No significant change in appearance of a 6 mm calculus situated within the di stal right ureter. Slight interval decrease in right hydroureteronephrosis. 2. Unchanged additional findings as detailed. CBC, basic metabolic panel and coagulation panel unremarkable. UA pending. Patient treated with the following in the ED: NPO after midnight Plan is to admit the patient for urology procedure in the morning. Images Reviewed?: Images reviewed and evaluated by me Time of 1ST Reevaluation: 19:46 Reevaluation 1ST: Unchanged Patient Education/Counseling: Diagnosis, Treatment Family Education/Counseling: No Family Present SEPSIS Sepsis Screen Date sepsis recognized/suspect: May 10, 2025 Time Sepsis recognized/suspect: 1812 Recent Procedure: No On Antibiotic Therapy: No Respiratory Rate >20: No Heart Rate >90: No Temp<36 C (96.8 F) or >38.3 C: No SBP <90 or MAP <65 mmHG: No New Acute Mental Status Change: No Is the patient on CPAP, BIPAP,: No Physician Orders Urinalysis (05/10/25 18:35) Electrocardigram (05/10/25 18:35) Ct Ab Pel Wo Con-No Oral Or Iv (05/10/25 18:35) Chest Xray 1 View (05/10/25 18:35) Vital Signs Date Time Temp Pulse Resp B/P (MAP) Pulse Ox O2 Delivery O2 Flow Rate FiO2 05/10/25 18:13 97.4 76 20 131/76 97 97.4 Laboratory Tests Test 05/10/25 19:15 White Blood Count 7.1 10^3/uL (4.4-10.8) Departure 1 Departure Time of Disposition: 20:51 Impression: Primary Impression: Hydronephrosis concurrent with and due to calculi of kidney and ureter Disposition: ADMITTED INPATIENT Admit to: Med Surg Condition: Fair Critical Care Note Critical Care Time?: No Stability Stability form required: No Heart Score Heart Score: Heart Score Response (Comments) Value History N/A 0 EKG N/A 0 Age N/A 0 Risk Factors N/A 0 Troponin N/A 0 Total 0 I personally scribed for MARIELA COTNE MD ([email or web address]) on 05/10/25 at 18:48. Electronically submitted by Pop Nuñez ([email or web address]). I personally scribed for MARIELA CONTE MD ([email or web address]) on 05/10/25 at 19:55. Electronically submitted by Pop Nuñez ([email or web address]). MARIELA CONTE MD May 10, 2025 18:48
--- NOTE | 2025-05-10 19:21 | DVH ---
CHEST RADIOGRAPH Indication: pre-op Technique: Single frontal view of the chest was obtained COMPARISON: None FINDINGS: Lungs and pleural spaces are clear. Cardiac silhouette and yrn are within normal limits. Bones and s oft tissues demonstrate no significant abnormality. IMPRESSION: 1. No acute disease.
--- NOTE | 2025-05-10 19:24 | DVH ---
Exam: CT CT AB PEL WO CON-NO ORAL OR IV History: eval kidney stone position Comparison Study: XY KUB ABDOMEN SINGLE VIEW on DOS: 04/20/25, CT CT AB PEL WO CON-NO ORAL OR IV on DOS : 03/31/25, CT CT AB PEL WO CON-NO ORAL OR IV on DOS: 03/19/25 TECHNIQUE: Multidetector CT of the abdomen and pelvis was performed from lung bases to pubic symphysi s. Imaging was performed without IV contrast. Axial, coronal, and sagittal multiplanar reformats were obtained from the axial data set by the technologist. RADIATION DOSE: CTDI vol 27.6 mGy. DLP 1614.43 mGy.cm Findings: Lungs: Lower lobe calcified granuloma. Liver: Unremarkable. Spleen: Unremarkable. Pancreas: Unremarkable. Gallbladder: Contracted in appearance. Adrenals: Unremarkable Kidneys: There is redemonstration of a 6 mm calculus situated within the distal right ureter, not sig nificantly changed. There is decreased right hydroureteronephrosis. Pelvic Viscera: Unremarkable. Vasculature: Unremarkable. Retroperitoneum: Shotty retroperitoneal nodes. Bowel: No bowel obstruction. Musculoskeletal: Unchanged sclerotic and erosive changes across the opposing endplates of L4-5. Soft tissues: Tiny fat containing umbilical hernia. Impression: 1. No significant change in appearance of a 6 mm calculus situated within the distal right ureter. Sl ight interval decrease in right hydroureteronephrosis. 2. Unchanged additional findings as detailed.
[2025-05-10 19:26] LABS: Hematocrit 38.4 % (41.0-53.0); Hemoglobin 12.7 g/dL (13.5-17.5); Mean Corpuscular Hemoglobin 27.4 pg (28.0-32.0); Mean Corpuscular Volume 82.8 fL (80.0-100.0); Nucleated Red Blood Cells % 0.0 %
[2025-05-10 19:43] LABS: Chloride 106 mmol/L (98-107); Potassium 4.0 mmol/L (3.5-5.1); Sodium 139 mmol/L (136-145)
[2025-05-10 19:44] LABS: Anion Gap 9 (5-15); Calcium 9.1 mg/dL (8.7-10.4); Carbon Dioxide 24 mmol/L (20-31)
[2025-05-10 19:49] LABS: BUN/Creatinine Ratio 9.6 (10.0-20.0); Blood Urea Nitrogen 11 mg/dL (9-23); Glucose 89 mg/dL (74-106)
[2025-05-10 19:51] LABS: INR 0.96 (0.9-1.15); Partial Thromboplastin Time 28.0 SEC (24.5-34.5); Prothrombin Time 10.2 sec (9.3-11.8)
[2025-05-10] MEDS ORDERED: ONDANSETRON HCL 4 MG/2 ML VIAL IV PRN (22:15)
[2025-05-10] MEDS ORDERED: MORPHINE SULFATE INJ 2 MG/ml SYRG IV PRN (22:15)
[2025-05-10] MEDS ORDERED: ACETAMINOPHEN 325 MG TAB PO PRN (22:15)
[2025-05-10 22:52] LABS: Alanine Aminotransferase 45.0 U/L (7-40); Albumin 4.3 g/dL (3.2-4.8); Alkaline Phosphatase 112.0 U/L (46-116); Lipase 42.0 U/L (12-53); Magnesium 2.0 mg/dL (1.6-2.6); Total Protein 7.5 g/dL (5.7-8.2)
[2025-05-10 22:53] LABS: Bilirubin, Total 0.5 mg/dL (0.2-1.0)
[2025-05-10 23:05] LABS: Urine Protein, UAD Negative (Negative)
[2025-05-10 23:07] LABS: Bilirubin, Direct 0.2 mg/dL (<0.3); Cholesterol 189.0 mg/dL (< 200); Triglycerides 255.0 mg/dL (< 150)
[2025-05-10 23:08] LABS: HDL Cholesterol 36.0 mg/dL (40-59)
--- NOTE | 2025-05-10 23:08 | DVHHPRES ---
History of Present Illness Resident Creating Document: HAZEL EDWARDS History of Present Illness Kaity Tierney is a 49-year-old male patient who presents to the ED for elective surgery which is plan for 05/12/[address] Noyola due to a right 6 mm ureteral kidney stone. Per patient patient started with nephrolithiasis and hydronephrosis on 03/18 where he was initially diagnosed in this hospital, conservative measures were executed, but not resolving disease, requiring surgery on 04/30 which failed on retrieving ureteral stone. Patient recently went to [place] on 05/01/2025 due to intractable right flank pain, indicating conservative measures in this center as well. Per patient, urologist we will complete surgery on 05/12/2025 to try to remove stone once again. Patient has tolerable pain at this time (intensity 2/10). Denies any other associated symptoms Past medical history: Nephrolithiasis Surgical history: Appendicectomy. 04/20 urological surgery which failed to remove stone Family history: Noncontributory Social history: Lives in [place] with family (next of kin is ). Ex tobacco abuse (approximately 10 pack-year history of smoking, quit two years ago. Denies current tobacco, alcohol and other drug abuse Allergies: Aspirin (anaphylaxis) Home medication: Denies Patient seen and examined at bedside. Currently has no new complaints. Past Medical History Per HPI Past Surgical History Per HPI Family History Per HPI Past Social History Per HPI Review of Systems Review of Systems Per HPI Allergies: Coded Allergies: Aspirin (Unverified Allergy, Severe, angioedema, SOB, 04/16/25) Medications Current Medications Medications Dose Ordered Sig/[facility] Route Start Time Stop Time Status Last Admin Dose Admin Acetaminophen 325 mg Q4HP PRN PO 05/10/25 22:15 Ondansetron HCl 4 mg Q4HP PRN IV 05/10/25 22:15 Enoxaparin Sodium 40 mg DAILY SC 05/11/25 10:00 Morphine Sulfate 2 mg Q4HPRN PRN IV 05/10/25 22:15 Sodium Chloride 1,000 ml @ 125 mls/hr Q8H IV 05/10/25 22:15 Ketorolac Tromethamine 30 mg Q6HPRN PRN IV 05/10/25 22:15 05/15/25 22:14 Pantoprazole Sodium 40 mg DAILY IV 05/11/25 10:00 Exam Vital Signs Vital Signs Date Time Temp Pulse Resp B/P (MAP) Pulse Ox O2 Delivery O2 Flow Rate FiO2 05/10/25 18:13 97.4 76 20 131/76 97 97.4 Exam Patient lying in bed, in no acute distress General: Lucid, afebrile, mucosae are moist Cardiovascular: Normal S1 and S2. No murmurs, gallops or rubs Respiratory: Normal ventilation mechanics. Clear lung sounds on auscultation Abdomen: Soft, nontender, no organomegaly, normal bowel sounds MSK/skin: Mobilizes 4 limbs. Skin is dry and warm : Positive costovertebral tenderness on right side Neurological: Oriented in 3 spheres. No motor no sensitive deficits. Pupils are isocoric and reactive Labs/Xrays Labs Test 05/10/25 19:40 05/10/25 19:15 Range/Units White Blood Count 7.1 4.4-10.8 10^3/uL Red Blood Count 4.64 4.5-5.90 10^6/uL Hemoglobin 12.7 L 13.5-17.5 g/dL Hematocrit 38.4 L 41.0-53.0 % Mean Corpuscular Volume 82.8 80.0-100.0 fL Mean Corpuscular Hemoglobin 27.4 L 28.0-32.0 pg Mean Corpuscular Hemoglobin Concent 33.1 32.0-36.0 g/dL Red Cell Distribution Width 13.7 11.8-14.3 % Platelet Count 320 140-450 10^3/uL Mean Platelet Volume 8.1 6.9-10.8 fL Neutrophils (%) (Auto) 59.8 37.0-80.0 % Lymphocytes (%) (Auto) 31.6 10.0-50.0 % Monocytes (%) (Auto) 4.7 0.0-12.0 % Eosinophils (%) (Auto) 3.5 0.0-7.0 % Basophils (%) (Auto) 0.4 0.0-2.0 % Neutrophils # (Auto) 4.2 1.6-8.6 10 ^3/uL Lymphocytes # (Auto) 2.2 0.4-5.4 10 ^3/uL Monocytes # (Auto) 0.3 0-1.3 10 ^3/uL Eosinophils # (Auto) 0.2 0-0.8 10 ^3/uL Basophils # (Auto) 0 0-0.2 10 ^3/uL Nucleated Red Blood Cells 0.0 % Prothrombin Time 10.2 9.3-11.8 sec Prothrombin Time INR 0.96 0.9-1.15 Activated Partial Thromboplast Time 28.0 24.5-34.5 SEC Sodium Level 139 136-145 mmol/L Potassium Level 4.0 3.5-5.1 mmol/L Chloride Level 106 98-107 mmol/L Carbon Dioxide Level 24 20-31 mmol/L Anion Gap 9 5-15 Blood Urea Nitrogen 11 9-23 mg/dL Creatinine 1.14 0.700-1.30 mg/dL Glomerular Filtration Rate Calc 80 >90 mL/min BUN/Creatinine Ratio 9.6 L 10.0-20.0 Serum Glucose 89 74-106 mg/dL Hemoglobin A1c 5.1 <5.7 % A1C Calcium Level 9.1 8.7-10.4 mg/dL Phosphorus Level 3.9 2.4-5.1 mg/dL Magnesium Level 2.0 1.6-2.6 mg/dL Total Bilirubin 0.5 0.2-1.0 mg/dL Aspartate Amino Transferase (AST) 28 13-40 U/L Alanine Aminotransferase (ALT) 45 H 7-40 U/L Alkaline Phosphatase 112 46-116 U/L Total Protein 7.5 5.7-8.2 g/dL Albumin 4.3 3.2-4.8 g/dL Triglycerides Level 255 H < 150 mg/dL LDL Cholesterol 124 H < 100 mg/dL Lipase 42 12-53 U/L Vitamin B12 Level 543 211-911 pg/mL Vitamin D 25-Hydroxy 33.1 30.0-100 ng/mL Thyroid Stimulating Hormone (TSH) 1.38 0.55-4.78 uIU/mL SEPSIS Sepsis Screen Date sepsis recognized/suspect: May 10, 2025 Time Sepsis recognized/suspect: 1812 Recent Procedure: No On Antibiotic Therapy: No Respiratory Rate >20: No Heart Rate >90: No Temp<36 C (96.8 F) or >38.3 C: No SBP <90 or MAP <65 mmHG: No New Acute Mental Status Change: No Is the patient on CPAP, BIPAP,: No Physician Orders Electrocardigram (05/10/25 18:35) Ct Ab Pel Wo Con-No Oral Or Iv (05/10/25 18:35) Chest Xray 1 View (05/10/25 18:35) Admit (05/10/25 22:11) Code Status (05/10/25 22:11) Acetaminophen Tablet (Tylenol Tablet) (05/10/25 22:15) Ondansetron Hcl (Zofran) (05/10/25 22:15) Enoxaparin Sodium (Lovenox) (05/11/25 10:00) Complete Blood Count (05/11/25 04:00) Comprehensive Metabolic Panel (05/11/25 04:00) Npo (Nothing By Mouth) Diet (05/11/25 Breakfast) Morphine Sulfate Injection (05/10/25 22:15) Oxygen By Nasal Cannula (05/10/25 22:11) Stat Ekg For Chest Pain (05/10/25 22:11) Notify Md Of Changes From Base (05/10/25 22:11) Silver Miner Blasting For 24 Hours (05/10/25 22:11) Emergency Dysrhythmia Protocol (05/10/25 22:11) Rhythm Strips Once Every Shift (05/10/25 22:11) Urinalysis (05/10/25 22:11) Thyroid Stimulating Hormone (05/10/25 22:11) Phosphorus (05/10/25 22:11) Magnesium (05/10/25 22:11) Lipase (05/10/25 22:11) Lipid Panel (05/10/25 22:11) Lactic Acid W/ Reflex Order (05/10/25 22:11) Drug Screen (05/10/25 22:11) Sodium Chloride 0.9% (05/10/25 22:15) Sodium Chloride 0.9% (05/10/25 22:15) Ketorolac Injection (Toradol Injection) (05/10/25 22:15) Pantoprazole (Protonix) (05/11/25 10:00) Hepatic Panel (05/10/25 19:15) Vital Signs Date Time Temp Pulse Resp B/P (MAP) Pulse Ox O2 Delivery O2 Flow Rate FiO2 05/10/25 18:13 97.4 76 20 131/76 97 97.4 Laboratory Tests Test 05/10/25 19:15 White Blood Count 7.1 10^3/uL (4.4-10.8) Assessment/Plan Assessment/Plan Right ureteral stone with hydronephrosis Patient admitted for elective surgery for 05/12/2025. Patient had stone since 03/18/2025, did not respond to previous conservative management and had one failed surgery on 04/20/2025. Currently on IV fluids and tamsulosin Consulted Urology (Dr. Noyola) Patient is kept NPO Normocytic anemia Monitor H&H Transaminitis Monitor CMP Morbid obesity History of tobacco abuse (10 pack-year history of smoking) Dyslipidemia (newly diagnosed) Gave her advice on healthy lifestyle habits Counseled strongly on continuing cessation of tobacco products. Patient ASCVD score is very low. No need for atorvastatin at this time. Goals of care discussed with patient for over 18 minutes: Full code status Discussed plan with Dr. Sandoval, patient and nurses: Patient admitted to [facility] for elective surgery of right ureteral stone removal Plan discussed with: Patient, Other (Nurses) My Orders Orders - HAZEL EDWARDS RESIDENT Procedure Category Date Status Time Admit ADMIT 05/10/25 Transmitted 22:11 Code Status CODE 05/10/25 Transmitted 22:11 Acetaminophen Tablet PHA 05/10/25 In Process (Tylenol Tablet) 22:15 Ondansetron Hcl PHA 05/10/25 In Process (Zofran) 22:15 Enoxaparin Sodium PHA 05/11/25 In Process (Lovenox) 10:00 Complete Blood Count LAB 05/11/25 Verified 04:00 Comprehensive LAB 05/11/25 Verified Metabolic Panel 04:00 Npo (Nothing By DIET 05/11/25 Transmitted Mouth) Diet Breakfast Morphine Sulfate PHA 05/10/25 In Process Injection 22:15 Oxygen By Nasal RT 05/10/25 Transmitted Cannula 22:11 Stat Ekg For Chest FE 05/10/25 In Process Pain 22:11 Notify Of Changes FE 05/10/25 In Process From Base 22:11 Silver Miner Blasting For FE 05/10/25 In Process 24 Hours 22:11 Emergency Dysrhythmia FE 05/10/25 In Process Protocol 22:11 Rhythm Strips Once FE 05/10/25 In Process Every Shift 22:11 Urinalysis LAB 05/10/25 In Process 22:11 Thyroid Stimulating LAB 05/10/25 In Process Hormone 22:11 Phosphorus LAB 05/10/25 In Process 22:11 Magnesium LAB 05/10/25 In Process 22:11 Lipase LAB 05/10/25 In Process 22:11 Lipid Panel LAB 05/10/25 In Process 22:11 Lactic Acid W/ Reflex LAB 05/10/25 Logged Order 22:11 Drug Screen LAB 05/10/25 In Process 22:11 Sodium Chloride 0.9% PHA 05/10/25 In Process 22:15 Sodium Chloride 0.9% PHA 05/10/25 In Process 22:15 Ketorolac Injection PHA 05/10/25 In Process (Toradol Injection) 22:15 Pantoprazole PHA 05/11/25 In Process (Protonix) 10:00 Hepatic Panel LAB 05/10/25 In Process 19:15 Date of Service: May 10, 2025 Billing Provider: KOSTA SANDOVAL MD Common Visit Codes: [id number] INP/OBS CARE (HIGH) Secondary Visit Codes: [id number] CARE PLAN 30 MINUTES HAZEL EDWARDS RESIDENT May 10, 2025 23:08
[2025-05-10 23:13] LABS: Amphetamine Screen, Urine Neg (NEGATIVE); Barbiturate Scree,Urine Neg (NEGATIVE); Benzodiazephine Screen, Urine Neg (NEGATIVE); Cannabinoid Screen, Urine Neg (NEGATIVE); Cocaine Screen, Urine Neg (NEGATIVE); Opiate Scree,Urine Neg (NEGATIVE); Phencyclidine Screen, Urine Neg (NEGATIVE)
[2025-05-11] MEDS: PANTOPRAZOLE 40 MG/10 ML VIAL INJ IV ONE (02:33)
[2025-05-11] MEDS: SODIUM CHLORIDE 0.9% 500 ML IV ONE (02:46)
[2025-05-11] MEDS: KETOROLAC TROMETH 30 MG/ML 1ML VIAL IV PRN (02:46)
[2025-05-11] MEDS: TAMSULOSIN HYDROCHLORIDE 0.4 MG CAP PO ONE (02:46)
[2025-05-11 02:50] VITALS: PULSE 70; RESP 16; O2SAT 98
[2025-05-11] MEDS: SODIUM CHLORIDE 0.9% 1,000 ML IV SCH (03:08)
[2025-05-11 06:38] LABS: Hematocrit 37.7 % (41.0-53.0); Hemoglobin 12.3 g/dL (13.5-17.5); Mean Corpuscular Hemoglobin 27.1 pg (28.0-32.0); Mean Corpuscular Volume 82.9 fL (80.0-100.0); Nucleated Red Blood Cells % 0.3 %
[2025-05-11 06:53] LABS: Albumin 4.3 g/dL (3.2-4.8); Alkaline Phosphatase 112 U/L (46-116); Anion Gap 10 (5-15); BUN/Creatinine Ratio 11.3 (10.0-20.0); Blood Urea Nitrogen 11 mg/dL (9-23); Calcium 9.1 mg/dL (8.7-10.4); Carbon Dioxide 26 mmol/L (20-31); Chloride 105 mmol/L (98-107); Glucose 101 mg/dL (74-106); Potassium 3.9 mmol/L (3.5-5.1); Sodium 141 mmol/L (136-145); Total Protein 7.5 g/dL (5.7-8.2)
[2025-05-11 06:54] LABS: Bilirubin, Total 0.6 mg/dL (0.2-1.0)
[2025-05-11 06:59] LABS: Alanine Aminotransferase 45 U/L (7-40)
[2025-05-11 10:05] VITALS: BP 122/85; TEMP 97.1
[2025-05-11] MEDS: PANTOPRAZOLE 40 MG/10 ML VIAL INJ IV SCH (10:07)
[2025-05-11] MEDS: ENOXAPARIN SOD 40 MG/0.4 ML SYRINGE SC SCH (10:07)
[2025-05-11 11:17] VITALS: PULSE 67; RESP 16; O2SAT 97
--- NOTE | 2025-05-11 11:29 | DVHDS2 ---
Discharge Summary Date of Admission May 10, 2025 at 22:11 Date of Discharge: May 11, 2025 Admitting Diagnosis Obstructive uropathy Labs/Diagnostic Data: Laboratory Results Test 05/11/25 06:15 05/10/25 23:21 05/10/25 19:40 05/10/25 19:15 White Blood Count 5.1 10^3/uL (4.4-10.8) Red Blood Count 4.55 10^6/uL (4.5-5.90) Hemoglobin 12.3 g/dL (13.5-17.5) Hematocrit 37.7 % (41.0-53.0) Mean Corpuscular Volume 82.9 fL (80.0-100.0) Mean Corpuscular Hemoglobin 27.1 pg (28.0-32.0) Mean Corpuscular Hemoglobin Concent 32.7 g/dL (32.0-36.0) Red Cell Distribution Width 13.7 % (11.8-14.3) Platelet Count 290 10^3/uL (140-450) Mean Platelet Volume 7.9 fL (6.9-10.8) Neutrophils (%) (Auto) 66.1 % (37.0-80.0) Lymphocytes (%) (Auto) 24.9 % (10.0-50.0) Monocytes (%) (Auto) 5.5 % (0.0-12.0) Eosinophils (%) (Auto) 3.1 % (0.0-7.0) Basophils (%) (Auto) 0.4 % (0.0-2.0) Neutrophils # (Auto) 3.4 10 ^3/uL (1.6-8.6) Lymphocytes # (Auto) 1.3 10 ^3/uL (0.4-5.4) Monocytes # (Auto) 0.3 10 ^3/uL (0-1.3) Eosinophils # (Auto) 0.2 10 ^3/uL (0-0.8) Basophils # (Auto) 0 10 ^3/uL (0-0.2) Nucleated Red Blood Cells 0.3 % Sodium Level 141 mmol/L (136-145) Potassium Level 3.9 mmol/L (3.5-5.1) Chloride Level 105 mmol/L (98-107) Carbon Dioxide Level 26 mmol/L (20-31) Anion Gap 10 (5-15) Blood Urea Nitrogen 11 mg/dL (9-23) Creatinine 0.97 mg/dL (0.700-1.30) Glomerular Filtration Rate Calc 97 mL/min (>90) BUN/Creatinine Ratio 11.3 (10.0-20.0) Serum Glucose 101 mg/dL (74-106) Calcium Level 9.1 mg/dL (8.7-10.4) Total Bilirubin 0.6 mg/dL (0.2-1.0) Aspartate Amino Transferase (AST) 23 U/L (13-40) Alanine Aminotransferase (ALT) 45 U/L (7-40) Alkaline Phosphatase 112 U/L (46-116) Total Protein 7.5 g/dL (5.7-8.2) Albumin 4.3 g/dL (3.2-4.8) Lactic Acid Level 1.2 mmol/L (0.4-2.0) Urine Color Light-yellow (Yellow) Urine Clarity Clear (Clear) Urine pH 5.5 (5.0-9.0) Urine Specific [place] 1.014 (1.001-1.035) Urine Protein Negative (Negative) Urine Ketones Negative (Negative) Urine Blood Negative /uL (Negative) Urine Nitrite Negative (Negative) Urine Bilirubin Negative (Negative) Urine Urobilinogen Normal mg/dL (Negative) Urine Leukocyte Esterase Negative /uL (Negative) Urine RBC 1 /hpf (0 - 3) Urine Microscopic WBC 1 /HPF (0-3) Urine Squamous Epithelial Cells Few /hpf (<5) Urine Bacteria None seen /hpf (None Seen) Urine Glucose Normal mg/dL (Normal) Urine Opiates Screen Neg (NEGATIVE) Urine Fentanyl Screen Neg (NEGATIVE) Urine Barbiturates Screen Neg (NEGATIVE) Urine Phencyclidine Screen Neg (NEGATIVE) Urine Amphetamines Screen Neg (NEGATIVE) Urine Benzodiazepines Screen Neg (NEGATIVE) Urine Cocaine Screen Neg (NEGATIVE) Urine Cannabinoids Screen Neg (NEGATIVE) Prothrombin Time 10.2 sec (9.3-11.8) Prothrombin Time INR 0.96 (0.9-1.15) Activated Partial Thromboplast Time 28.0 SEC (24.5-34.5) Hemoglobin A1c 5.1 % A1C (<5.7) Phosphorus Level 3.9 mg/dL (2.4-5.1) Magnesium Level 2.0 mg/dL (1.6-2.6) Direct Bilirubin 0.2 mg/dL (<0.3) Triglycerides Level 255 mg/dL (< 150) Cholesterol Level 189 mg/dL (< 200) LDL Cholesterol 124 mg/dL (< 100) HDL Cholesterol 36 mg/dL (40-59) Lipase 42 U/L (12-53) Vitamin B12 Level 543 pg/mL (211-911) Vitamin D 25-Hydroxy 33.1 ng/mL (30.0-100) Thyroid Stimulating Hormone (TSH) 1.38 uIU/mL (0.55-4.78) Other Laboratory Tests 05/11/25 06:15 Brief Hx & Hospital Course: History of Present Illness Kaity Tierney is a 49-year-old male patient who presents to the ED for elective surgery which is plan for 05/12/[address] Noyola due to a right 6 mm ureteral kidney stone. Per patient patient started with nephrolithiasis and hydronephrosis on 03/18 where he was initially diagnosed in this hospital, conservative measures were executed, but not resolving disease, requiring surgery on 04/30 which failed on retrieving ureteral stone. Patient recently went to [facility] on 05/01/2025 due to intractable right flank pain, indicating conservative measures in this center as well. Per patient, urologist we will complete surgery on 05/12/2025 to try to remove stone once again. Patient has tolerable pain at this time (intensity 2/10). Denies any other associated symptoms. Course of hospitalization: Patient unable to be seen as patient for elective surgery given surgical scheduled. Patient will be discharged home and follow up as an outpatient for lithotripsy. Urinalysis without any noted UTI. No RBCs noted. Patient currently on Levaquin as well as tamsulosin at home. Physical examination General: Alert and Oriented x3. No acute distress. Well-nourished. Eyes: EOMI. Anicteric. HENT: Moist mucous membranes. Lungs: Clear to auscultation bilaterally. No accessory muscle use. Cardiovascular: Regular rate and rhythm. No murmur. No JVD. Abdomen: Soft, non-tender and non-distended. No palpable masses. Extremities: No edema. Non-tender. Skin: No rashes or lesions. Warm. Neurologic: No focal neurological deficits. CN II-XII grossly intact, but not individually tested. Psychiatric: Cooperative. Appropriate mood and affect. Total time spent with patient discussing and formulating plan of care: 35 minutes. This medical document was created using an electronic medical record system with [employer] dictation system. Although this document has been carefully reviewed, there may still be some phonetic and typographical errors. These areas are purely typographical due to imperfections of the software programs, and do not reflect any compromise in the patient's medical care. Consults/Reason for consult Urology: Obstructive uropathy Condition at Discharge: Good Final Diagnosis/Problems List Obstructive Uropathy Hydronephrosis Nephrolithiasis Discharge Disposition: Home Discharge Instruct/Medications Diet: Regular Activity: No Restrictions, As Tolerated Follow Up/Referral: Follow up with Dr. Noyola at scheduled appointment Medications: Continue home medications 36 Discharge Statement: "Patient was advised to return to the ER or call 911 if any headaches, dizziness, shortness of breath, chest pain, abdominal pain, bleeding, fevers, or worsening of medical condition. Patient was counseled about treatment plan, medications, possible side effects, patientverbalized understanding. All questions were answered to the best of my ability. This discharge took greater then 30 minutes in planning, reviewing documentation, counseling the patient, and discussing with other team members." ASSESSMENT ASSESSMENT Assessment Obstructive Uropathy Date of Service: May 11, 2025 Billing Provider: MELITA GOLDSTEIN NP Common Visit Codes: 18387-BIM/OBS DISCH DAY >30min MELITA GOLDSTEIN NP May 11, 2025 11:29
[2025-05-11] MEDS ORDERED: TAMSULOSIN HYDROCHLORIDE 0.4 MG CAP PO SCH (18:00)
== END 2025-05-11 11:41 | disposition home or self-care (01) | DRG 694 ==
LOC: ER 18:10 → OVERFLOW 22:11 → UNDODEPER 05-11 11:31
PROVIDERS: ADMIT Nurse Practitioner Acute Care; ATTEND Nurse Practitioner Acute Care
DX: N13.2 Hydronephrosis with renal and ureteral calculous obstruction (principal); D64.9 Anemia, unspecified; R74.01 Elevation of levels of liver transaminase levels; E66.01 Morbid (severe) obesity due to excess calories; E78.5 Hyperlipidemia, unspecified; Z88.6 Allergy status to analgesic agent; Z87.891 Personal history of nicotine dependence; Z79.899 Other long term (current) drug therapy; Z68.37 Body mass index [BMI] 37.0-37.9, adult
CPT/HCPCS: 36415; 71045; 74176; 80048; 80053; 80061; 80076; 80307; 81001; 82306; 82607; 83036; 83605; 83690; 83735; 84100; 84443; 85025; 85610; 85730; G0378; J1885; J2470